=== PATIENT | female | born 1995 | race Caucasian/White ===

== ENCOUNTER 2017-08-04 12:17 | Inpatient (IN) | payer BC, SELFPAY ==
[2017-08-04] VITALS (9 sets, daily range): BP systolic 83–111; BP diastolic 44–68; PULSE 107–147; RESP 16–20; TEMP 36.9–38.9; O2SAT 97–99; BMI 16.2; BMI 16.3; BMI 16.6
--- NOTE | 2017-08-04 13:11 | CT_ITS ---
STUDY: CT ABDOMEN AND PELVIS WITHOUT CONTRAST REASON FOR EXAM: Female, 22 years old. Right lower quadrant and right flank pain RADIATION DOSAGE (If Supplied By Facility): CTDIvol = ( 6.04 ) mGy, DLP = ( 282.37 ) mGycm TECHNIQUE: Transaxial images were obtained from the dome of the diaphragm to the symphysis pubis without oral contrast, and without intravenous contrast. Sagittal and coronal images were reconstructed. Individualized dose optimization techniques were used for this CT. COMPARISON: None. FINDINGS: Lung bases demonstrate no evidence for consolidative process. No pericardial effusion. Liver and spleen are within normal limits. The liver appears enlarged. The adrenal glands and the pancreas are grossly within normal limits. Gallbladder slightly distended. Kidneys demonstrate no evidence for hydronephrosis. The appendix is not development visualized No free air within the peritoneal cavity. No free fluid in the pelvis. Uterus appears slightly prominent in size. Osseous structures demonstrate no acute abnormalities. IMPRESSION: Nonvisualization of the appendix no definite stranding in the right lower quadrant however appendicitis is not entirely excluded on this noncontrast CT. No definite evidence for obstructive uropathy seen Slightly distended gallbladder. There is likely a Kamla's lobe of the liver. Other possibilities include hepatomegaly Electronically Signed: Mihir Arauz, at 14:07 EDT Tel , Service support , CT/Abdomen/Pelvis without Cont
[2017-08-04] MEDS: 0.9% Normal Saline 1,000 ML 1000 ML IV (13:12)
[2017-08-04] MEDS: Ondansetron 4 MG/2 ML Vial IV (13:12)
--- NOTE | 2017-08-04 13:18 | ED.DCSUM_ITS ---
- ER Visit Summary Date of Service: 08/04/17 Chief Complaint: [] RT Sided abdominal pain since morning History of Present Illness: The patient is a 22 F [] patient reports she went to sleep feeling fine Saturday woke was awake and began having a sense of nausea and pain to the right side abdomen the symptoms persisted she came in for evaluation she has had some nausea but no vomiting she able take liquids she has had normal bowel bladder habits she is on a control tablet that caused her to miss periods for 3 months so she does not believe she is she has no history of vaginal bleeding or vaginal discharge and again bowel bladder habits are normal she has been able to eat she has had no fever she has no history of abdominal surgery, no history of kidney stones or ovarian cyst disease or abnormal vaginal bleeding Physical Examination: [] She is in no distress points her right lower abdomen as focus of pain she is a thin person head neck chest unremarkable the lungs are clear the abdomen is soft there is a vague pain to the right lower abdomen she says it radiates to her right back right back was unremarkable the rest of the abdominal exams unremarkable upper lower extremity exams unremarkable neurologically awake alert Pelvic exam done with nurse retail sales merchandiser development shows that there is no vaginal bleeding or discharge no cervical motion tenderness no tenderness to palpation of the adnexa Test Results: [] Emergency Department Course and Treatment: [] She white count returns of 40,[address] is unremarkable we asked to straight catheter but she declined that she provide a urine sample that shows about 25 white cells but also 10 epithelial cells, we start IV antibiotics, we then again asked her if we could straight catheter and she agreed we sent a straight cath urine which showed 0 red 0 whites Is feeling better she has some very mild pain to the right lower abdomen rebound or guarding at this time I spoke with Dr. Zhou seasonal package handler for surgery he will be by to see the patient shortly for further evaluation Treatment Plan: [] Disposition: [] Admit pending surgery evaluation Impression: [] RT Lower quadrant pain with leukocytosis This note was generated with [employer] dictation software. It may contain incorrect words, spelling, and punctuation that were not noted in review of the chart prior to signing ED Disposition - Plan for ED Patient: Chief Complaint: Abd Pain Referrals: Daniel Brink DO [Primary Care Provider] -
[2017-08-04 13:19] LABS: Hematocrit 35.5 % (37-47); Hemoglobin 11.7 g/dl (12.0-15.0); Mean Corpuscular Hgb 29.3 pg (27.0-32.0); Mean Platelet Vol. 9.2 fl (6.2-12.0); Platelet Count 360 K/mm3 (150-450); RBC Distribution Width CV 12.9 % (11.6-14.6); Red Blood Count 3.99 M/mm3 (4.2-5.4)
[2017-08-04] MEDS: Morphine 4 MG/ML Syringe IV (13:20)
[2017-08-04 13:29] LABS: AST(SGOT) 11 U/L (15-37); Alanine Aminotransfer ALT/SGPT 14 U/L (13-56); Albumin, Serum 2.9 g/dL (3.2-5.0); Alkaline Phosphatase 57 U/L (45-117); Anion Gap 11 (5-15); BUN 16 mg/dL (7-18); BUN/Creat Ratio 10.1 RATIO (10-20); Bilirubin, Direct 0.21 mg/dL (0.00-0.30); Calcium,Total 8.6 mg/dL (8.5-10.1); Chloride 99 mmol/L (98-107); Creatinine, Serum 1.58 mg/dL (0.55-1.02); EST Glomerular Filtration Rate 44 mL/min (>60); Est Glom Filt Rate - Afr Amer 53 mL/min (>60); Estimated Creatinine Clearance 37.34 ml/min; Globulin 4.5 g/dL (2.2-4.2); Glucose 141 mg/dL (74-106); Lipase 66 U/L (73-393); Potassium 3.9 mmol/L (3.5-5.1); Protein, Total 7.4 g/dL (6.4-8.2); Sodium Level 133 mmol/L (136-145)
[2017-08-04 13:36] LABS: Pregnancy, Serum, hCG Quali. NEGATIVE Negative (0-9 Nonpreg)
[2017-08-04 13:39] LABS: Differential Indicated MANUAL DIFF; POSITIVE COUNT YES; POSITIVE DIFFERENTIAL YES; POSITIVE MORPHOLOGY YES
[2017-08-04 13:40] LABS: White Blood Count 39.6 K/mm3 (4.4-11.0)
[2017-08-04 13:42] LABS: Lymphocyte 6 % (19-41); Monocyte 3 % (0-10); Neutrophil-Band 17 % (0-5); Neutrophil-Segmented 74 % (47-70); Total Cells Counted 100 (MANUAL DIFF)
[2017-08-04 13:44] LABS: Platelet Estimate ADEQUATE (ADEQ)
[2017-08-04 13:45] LABS: Red Cell Morphology NORM C+C NORMAL (NORM C&C)
--- NOTE | 2017-08-04 14:13 | ED.RN ---
WBC 39.[address] THE LAB DR HARRELL AWARE
[2017-08-04 14:34] LABS: Mucous, Urine 0 SEEN /hpf (<or=2+); Red Blood Cells-Urine 0 SEEN /hpf (0-5)
[2017-08-04 14:37] LABS: Color, Urine Yellow (Yellow); Glucose, Dipstick Normal (Normal); Ketone-Dipstick Negative (Negative); Leukocyte Esterase-Dipstick 500 /ul (Negative); Nitrite-Dipstick Negative (Negative); Occult Blood-Urine 25 /ul (Negative); Protein-Dipstick 100 mg/dl (Negative); Specific Gravity, Urine 1.015 (1.002-1.030); Urine Bilirubin Dipstick Negative (Negative); Urine Clarity Sl. Cloudy (Clear); Urine Urobilinogen Normal (Normal)
[2017-08-04 14:44] LABS: Bacteria 1+ /hpf (None Seen); Squamous Epithelial Cells - UA 5-10 SEEN /hpf (5-10); White Blood Cells 25-50 SEEN /hpf (0-5)
[2017-08-04] MEDS: 0.9% Normal Saline 1,000 ML 999 ML IV (14:45)
[2017-08-04 15:20] LABS: Lactic Acid 1.6 mmol/L (0.4-2.0)
[2017-08-04 15:54] LABS: Bacteria 0 SEEN /hpf (None Seen); Mucous, Urine 0 SEEN /hpf (<or=2+); Red Blood Cells-Urine 0 SEEN /hpf (0-5)
[2017-08-04 15:57] LABS: Color, Urine Yellow (Yellow); Glucose, Dipstick Normal (Normal); Ketone-Dipstick Negative (Negative); Leukocyte Esterase-Dipstick 25 /ul (Negative); Nitrite-Dipstick Negative (Negative); Occult Blood-Urine 10 /ul (Negative); Protein-Dipstick Negative (Negative); Urine Bilirubin Dipstick Negative (Negative); Urine Clarity Clear (Clear); Urine Urobilinogen Normal (Normal)
[2017-08-04 16:06] LABS: Squamous Epithelial Cells - UA 0-5 SEEN /hpf (5-10); White Blood Cells 0-5 SEEN /hpf (0-5)
--- NOTE | 2017-08-04 16:43 | CON.PCM_ITS ---
Problem List (1) Abdominal discomfort in right flank Status: Acute Reason for Consult Date of Consultation: 08/04/17 History of Present Illness: The patient is a 22 F patient reports she went to sleep feeling fine Saturday woke was awake and began having a sense of nausea and pain to the right side abdomen as well as right lower back pain. Initially she was having difficulty with urination and some burning she was treating herself with cranberry juice and some leftover medication to help with the burning. The symptoms persisted and she developed a fever of 102 at home, she came in for evaluation she has had some nausea but no vomiting she able take liquids she has had normal bowel bladder habits she is on a control tablet that caused her to miss periods for 3 months so she does not believe she is she has no history of vaginal bleeding or vaginal discharge and again bowel bladder habits are normal she has been able to eat she has had no fever she has no history of abdominal surgery, no history of kidney stones or ovarian cyst disease or abnormal vaginal bleeding In the emergency department her initial urinalysis was quite suspicious for a UTI a straight cath was less suspicious. She got a dose of antibiotics as well as a small amount of morphine and she states that she feels significantly better. She is not complaining of any right lower quadrant abdominal pain and yet still has some of that back pain. In addition she is chilling. Past Medical History Allergies No Known Allergies Allergy (Verified 08/04/17 12:19) Home Medications: Ambulatory Orders Medication Instructions Recorded l-Norgest/E.estradiol-E.estrad 1 tab PO DAILY 08/04/17 [Levono-E Estrad 0.15-0.03-0.01] Surgical History: no surgical history Smoking Status: Never smoker - *Family History Maternal History Items: No pertinent history Review of Systems Constitutional: Reports: Chills, Fever, Malaise Eyes: Denies: Blurred vision, Pain, Redness, Vision Change HEENT: Denies: Dysphasia, Ear Pain, Eye Pain, Head Aches, Hearing Changes, Sore Throat Cardiovascular: Denies: Chest Pain, Chest Pressure, Chest Tightness, Palpitations Respiratory: Denies: Cough, Hemoptysis, Shortness of breath at rest, Shortness of breath upon exertion, Wheezing Gastrointestinal: Reports: Abdominal Pain Genitourinary: Reports: Dysuria Musculoskeletal: Reports: Muscle pain Patient Problems: Active and Suspected Problems Abdominal cramping in right flank (Acute) Abdominal discomfort in right flank (Acute) - Physical Exam General: Alert, Oriented x3 HEENT: Atraumatic, PERRLA, EOMI, Normocephalic Oral: Moist Mucosa Lungs: Clear to auscultation Cardiovascular: Regular rate, Regular Rhythm, No murmurs Abdomen: Bowel Sounds Present, Soft, Non Tender, Non-Distended, - - Patient has a negative heel tap. She is able to get in and out of the bed without difficulty. Extremities: No clubbing, No cyanosis, No edema Skin: No rashes, No breakdown, - - She has no rashes in her back. She has icy hot patches on her back and on her right lower quadrant of her abdomen. Vital Signs Temp Pulse Resp BP Pulse Ox 98.7 F 107 H 16 97/57 L 97 08/04/17 14:59 08/04/17 14:59 08/04/17 14:59 08/04/17 14:59 08/04/17 14:59 Oxygen Delivery Method Room Air Weight: 91 lb 12.8 oz Body Mass Index (BMI) 16.2 Laboratory Tests Past 24 Hrs 08/04/17 08/04/17 08/04/17 13:02 13:02 13:02 WBC 39.6 H* RBC 3.99 L Hgb 11.7 L Hct 35.5 L MCV 89.0 MCH 29.3 MCHC 33.0 RDW 12.9 RDW Differential 42.0 Plt Count 360 MPV 9.2 Neut % (Auto) Not Reportable Absolute Neuts (auto) 36.0 H Absolute Lymphs (auto) 2.40 Total Counted 100 Neutrophils % (Manual) 74 H Band Neutrophils % 17 H Lymphocytes % (Manual) 6 L Monocytes % (Manual) 3 Diff Path Review May foll Platelet Estimate ADEQUATE RBC Morphology NORM C+C Sodium 133 L Potassium 3.9 Chloride 99 Carbon Dioxide 23.0 Anion Gap 11 BUN 16 Creatinine 1.58 H Estim Creat Clear Calc 37.34 Est GFR (MDRD) Af Amer 53 L Est GFR (MDRD) Non-Af 44 L BUN/Creatinine Ratio 10.1 Glucose 141 H Lactic Acid Calcium 8.6 Total Bilirubin 1.00 Direct Bilirubin 0.21 AST 11 L ALT 14 Alkaline Phosphatase 57 Total Protein 7.4 Albumin 2.9 L Globulin 4.5 H Lipase 66 L Serum , Qual NEGATIVE Urine Color Urine Clarity Urine pH Ur Specific [place] Urine Protein Urine Glucose (UA) Urine Ketones Urine Occult Blood Urine Nitrite Urine Bilirubin Urine Urobilinogen Ur Leukocyte Esterase Urine RBC Urine WBC Ur Squamous Epith Cells Urine Bacteria Urine Mucus 08/04/17 08/04/17 08/04/17 14:25 14:45 15:15 WBC RBC Hgb Hct MCV MCH MCHC RDW RDW Differential Plt Count MPV Neut % (Auto) Absolute Neuts (auto) Absolute Lymphs (auto) Total Counted Neutrophils % (Manual) Band Neutrophils % Lymphocytes % (Manual) Monocytes % (Manual) Diff Path Review Platelet Estimate RBC Morphology Sodium Potassium Chloride Carbon Dioxide Anion Gap BUN Creatinine Estim Creat Clear Calc Est GFR (MDRD) Af Amer Est GFR (MDRD) Non-Af BUN/Creatinine Ratio Glucose Lactic Acid 1.6 Calcium Total Bilirubin Direct Bilirubin AST ALT Alkaline Phosphatase Total Protein Albumin Globulin Lipase Serum , Qual Urine Color Yellow Yellow Urine Clarity Sl. Cloudy Clear Urine pH 6.0 6.0 Ur Specific [place] 1.015 1.010 Urine Protein 100 H Negative Urine Glucose (UA) Normal Normal Urine Ketones Negative Negative Urine Occult Blood 25 H 10 H Urine Nitrite Negative Negative Urine Bilirubin Negative Negative Urine Urobilinogen Normal Normal Ur Leukocyte Esterase 500 H 25 H Urine RBC 0 SEEN 0 SEEN Urine WBC 25-50 SEEN 0-5 SEEN Ur Squamous Epith Cells 5-10 SEEN 0-5 SEEN Urine Bacteria 1+ 0 SEEN Urine Mucus 0 SEEN 0 SEEN Assessment/Plan Active and Suspected Problems Abdominal cramping in right flank (Acute) Abdominal discomfort in right flank (Acute) At this point I do not think that this patient has acute appendicitis or appendiceal abscess or phlegmon. The CAT scan really is a difficult test particularly with her being so skinny at 91 pounds there are no real fat planes to help with this but her physical exam is not consistent with appendicitis and is quite a bit more consistent with pyelonephritis. I believe it is appropriate for her to come into the hospital tonight received several more doses of IV antibiotics. As well as wait for the urine culture and blood cultures to come back. I will follow along with you.
--- NOTE | 2017-08-04 16:55 | PCM.HP.STD ---
Problem List (1) Acute kidney injury Status: Acute (2) Acute pyelonephritis Status: Chronic (3) Sepsis Status: Acute History of Present Illness Date of Admission: 08/04/17 Chief Complaint: Abdominal pain. The patient is a 22 year old F with no significant past medical history presented to the emergency room because of abdominal pain. Her illness started 4 days ago with abdominal pain, right flank/right lumbar region pain, intermittent pain, sharp pain, 7 out of 10 in severity, not radiating, associated with nausea, vomiting and fever, relieved by Motrin and ice packs and without aggravating factors. She had a temperature of 102 Fahrenheit at home. On the first day of her symptoms, she started having dysuria for which she took cranberry juice and it did improve. She denied constipation or diarrhea. She reported dysuria but no hematuria or foul-smelling urine. In the emergency department, she was afebrile, tachycardic, blood pressure was stable and pulse ox maintained on room air. Her routine blood work is remarkable for significant leukocytosis, sodium of 133 and creatinine 1.58. LFT and lipase were normal. Lactic acid was normal. Serum test was negative. Urinalysis revealed clear urine, negative for nitrite, there was only 25 leukocyte esterase, 0-5 WBCs and no bacteria seen. CT scan abdomen and pelvis without contrast revealed nonvisualization of the appendix without definite stranding in the right lower quadrant, normal kidneys without evidence of kidney stones or hydronephrosis. She is being admitted for abdominal pain with sepsis with probable diagnosis of acute pyonephritis as well as acute kidney injury. Past Medical History Past Medical History (Chronic Problems): Chronic Problems Acute pyelonephritis (Chronic) Allergies No Known Allergies Allergy (Verified 08/04/17 12:19) Home Medications: Ambulatory Orders Medication Instructions Recorded l-Norgest/E.estradiol-E.estrad 1 tab PO DAILY 08/04/17 [Levono-E Estrad 0.15-0.03-0.01] Surgical History: no surgical history Psychiatric History: No pertinent psych hx GEOPHYSICAL PROSPECTING PERMIT AGENT History: No pertinent GEOPHYSICAL PROSPECTING PERMIT AGENT history Lives: With Family Smoking Status: Never smoker Alcohol: None Drugs: None - *Family History Maternal History Items: No pertinent history Review of Systems Constitutional: Reports: Anorexia, Chills, Fever. Denies: Weakness Eyes: Denies: Blurred vision, Double vision, Drainage, Redness HEENT: Denies: Difficulty Hearing, Ear Pain, Eye Pain, Nasal Congestion, Sore Throat Cardiovascular: Denies: Chest Pain, Chest Pressure, Chest Tightness, Edema, Palpitations, Syncope Respiratory: Denies: Cough, Pleuritic Pain, Shortness of Breath, Sputum production Gastrointestinal: Reports: Abdominal Pain, Nausea, Vomiting. Denies: Constipation, Diarrhea, Hematochezia Genitourinary: Denies: Frequency, Hematuria Musculoskeletal: Denies: Arm Pain, Back Pain, Foot Pain Skin: Denies: Dryness, Rash Neurological: Denies: Balance problems, Double vision, Change in Speech, Slurred speech, Headaches, Incoordination, Numbness Psychiatric: Denies: Anxiety, Depression Endocrine: Denies: Change in Body Habitus, Polydipsia VTE Information - Inpt Only VTE Present on Admission: No VTE Mechan Device Prophylaxis: None VTE Pharm Prophylaxis ordered?: No Patient Problems: Active and Suspected Problems Acute kidney injury (Acute) Sepsis (Acute) Abdominal discomfort in right flank (Acute) - Physical Exam General: Alert, Oriented x3, Cooperative, No apparent distress HEENT: Atraumatic, PERRLA, EOMI Oral: Moist Mucosa, No Gingival or Mucosal Lesions/ Ulcerations Neck: Supple, No JVD, Negative Carotid Bruits, Trachea Midline, Thyroid Normal Size and Texture Lungs: Clear to auscultation, No rhonchi, No wheeze, No rales, Diminished Cardiovascular: Regular rate, Regular Rhythm, Normal S1, Normal S2, No murmurs, PMI Normal, Tachycardic Abdomen: Bowel Sounds Present, Soft, Non Tender, Non-Distended, No Hepato-splenomegaly Extremities: No clubbing, No cyanosis, No edema Skin: No rashes, No breakdown Lymphatic: No Cervical, Supraclavicular, or Inguinal Adenopathy Neurological: Cranial nerves II-XII grossly intact, Motor Exam 5/5 strength throughout Psych/Mental Status: Normal Affect, Appropriate, Alert and oriented to time, place, person, mood and affect Vital Signs Temp Pulse Resp BP Pulse Ox 98.7 F 126 H 20 H 111/68 97 08/04/17 14:59 08/04/17 16:38 08/04/17 16:38 08/04/17 16:38 08/04/17 14:59 Oxygen Delivery Method Room Air Weight: 91 lb 12.8 oz Body Mass Index (BMI) 16.2 Laboratory Tests Past 24 Hrs 08/04/17 08/04/17 08/04/17 13:02 13:02 13:02 WBC 39.6 H* RBC 3.99 L Hgb 11.7 L Hct 35.5 L MCV 89.0 MCH 29.3 MCHC 33.0 RDW 12.9 RDW Differential 42.0 Plt Count 360 MPV 9.2 Neut % (Auto) Not Reportable Absolute Neuts (auto) 36.0 H Absolute Lymphs (auto) 2.40 Total Counted 100 Neutrophils % (Manual) 74 H Band Neutrophils % 17 H Lymphocytes % (Manual) 6 L Monocytes % (Manual) 3 Diff Path Review May foll Platelet Estimate ADEQUATE RBC Morphology NORM C+C Sodium 133 L Potassium 3.9 Chloride 99 Carbon Dioxide 23.0 Anion Gap 11 BUN 16 Creatinine 1.58 H Estim Creat Clear Calc 37.34 Est GFR (MDRD) Af Amer 53 L Est GFR (MDRD) Non-Af 44 L BUN/Creatinine Ratio 10.1 Glucose 141 H Lactic Acid Calcium 8.6 Total Bilirubin 1.00 Direct Bilirubin 0.21 AST 11 L ALT 14 Alkaline Phosphatase 57 Total Protein 7.4 Albumin 2.9 L Globulin 4.5 H Lipase 66 L Serum , Qual NEGATIVE Urine Color Urine Clarity Urine pH Ur Specific [place] Urine Protein Urine Glucose (UA) Urine Ketones Urine Occult Blood Urine Nitrite Urine Bilirubin Urine Urobilinogen Ur Leukocyte Esterase Urine RBC Urine WBC Ur Squamous Epith Cells Urine Bacteria Urine Mucus 08/04/17 08/04/17 08/04/17 14:25 14:45 15:15 WBC RBC Hgb Hct MCV MCH MCHC RDW RDW Differential Plt Count MPV Neut % (Auto) Absolute Neuts (auto) Absolute Lymphs (auto) Total Counted Neutrophils % (Manual) Band Neutrophils % Lymphocytes % (Manual) Monocytes % (Manual) Diff Path Review Platelet Estimate RBC Morphology Sodium Potassium Chloride Carbon Dioxide Anion Gap BUN Creatinine Estim Creat Clear Calc Est GFR (MDRD) Af Amer Est GFR (MDRD) Non-Af BUN/Creatinine Ratio Glucose Lactic Acid 1.6 Calcium Total Bilirubin Direct Bilirubin AST ALT Alkaline Phosphatase Total Protein Albumin Globulin Lipase Serum , Qual Urine Color Yellow Yellow Urine Clarity Sl. Cloudy Clear Urine pH 6.0 6.0 Ur Specific [place] 1.015 1.010 Urine Protein 100 H Negative Urine Glucose (UA) Normal Normal Urine Ketones Negative Negative Urine Occult Blood 25 H 10 H Urine Nitrite Negative Negative Urine Bilirubin Negative Negative Urine Urobilinogen Normal Normal Ur Leukocyte Esterase 500 H 25 H Urine RBC 0 SEEN 0 SEEN Urine WBC 25-50 SEEN 0-5 SEEN Ur Squamous Epith Cells 5-10 SEEN 0-5 SEEN Urine Bacteria 1+ 0 SEEN Urine Mucus 0 SEEN 0 SEEN Clinical Impression(s) from Imaging Studies Abdomen/Pelvis CT 08/04/17 13:11 IMPRESSION: Nonvisualization of the appendix no definite stranding in the right lower quadrant however appendicitis is not entirely excluded on this noncontrast CT. No definite evidence for obstructive uropathy seen Slightly distended gallbladder. There is likely a Kamla's lobe of the liver. Other possibilities include hepatomegaly Electronically Signed: Mihir Arauz, at 14:07 EDT Tel , Service support , Assessment/Plan Active and Suspected Problems Acute kidney injury (Acute) Sepsis (Acute) Abdominal discomfort in right flank (Acute) This is a 22 years old female patient presented to the emergency room because of right flank pain/right lumbar region pain, nausea, vomiting and fever and she was found to have highly elevated white blood cell count of more than 39,000, diagnosed with sepsis of unclear etiology with probable diagnosis of acute pyonephritis and also found to have acute kidney injury. #1 abdominal pain/sepsis/probable acute pyonephritis: CT scan abdomen and pelvis reviewed as above. No definite diagnosis of acute appendicitis but cannot be excluded. General surgery evaluated the patient and stated no evidence of acute appendicitis. She is afebrile, tachycardic, blood pressure stable and lactic acid was normal. Blood and urine culture sent. Serum test was negative. Plan: Admit to MedSurg floor, cardiac monitoring, IV fluids, follow blood and urine cultures, repeat CBC and CMP tomorrow morning, start IV Zosyn, ultrasound abdomen complete, repeat serum test tomorrow morning, general surgery consult #2 acute kidney injury/mild hyponatremia: Probably prerenal secondary to infection and sepsis. Patient denies any history of kidney disease. Admission creatinine is 1.58. Plan: IV fluids, input output chart, repeat BMP tomorrow morning. #3 DVT prophylaxis: Low risk patient, no prophylaxis indicated. This note was generated with [employer] dictation software. It may contain incorrect words, spelling, and punctuation that were not noted in checking the note before signing. Code Visit Inpatient E&M: 86184 Init Hosp L3
--- NOTE | 2017-08-04 17:06 | HP.PCM_ITS ---
Problem List (1) Acute kidney injury Status: Acute (2) Acute pyelonephritis Status: Chronic (3) Sepsis Status: Acute History of Present Illness Date of Admission: 08/04/17 Chief Complaint: Abdominal pain. The patient is a 22 year old F with no significant past medical history presented to the emergency room because of abdominal pain. Her illness started 4 days ago with abdominal pain, right flank/right lumbar region pain, intermittent pain, sharp pain, 7 out of 10 in severity, not radiating, associated with nausea, vomiting and fever, relieved by Motrin and ice packs and without aggravating factors. She had a temperature of 102 Fahrenheit at home. On the first day of her symptoms, she started having dysuria for which she took cranberry juice and it did improve. She denied constipation or diarrhea. She reported dysuria but no hematuria or foul-smelling urine. In the emergency department, she was afebrile, tachycardic, blood pressure was stable and pulse ox maintained on room air. Her routine blood work is remarkable for significant leukocytosis, sodium of 133 and creatinine 1.58. LFT and lipase were normal. Lactic acid was normal. Serum test was negative. Urinalysis revealed clear urine, negative for nitrite, there was only 25 leukocyte esterase, 0-5 WBCs and no bacteria seen. CT scan abdomen and pelvis without contrast revealed nonvisualization of the appendix without definite stranding in the right lower quadrant, normal kidneys without evidence of kidney stones or hydronephrosis. She is being admitted for abdominal pain with sepsis with probable diagnosis of acute pyonephritis as well as acute kidney injury. 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 Denies: Weakness Eyes: Denies: Blurred vision, Double vision, Drainage, Redness HEENT: Denies: Difficulty Hearing, Ear Pain, Eye Pain, Nasal Congestion, Sore Throat Cardiovascular: Denies: Chest Pain, Chest Pressure, Chest Tightness, Edema, Palpitations, Syncope Respiratory: Denies: Cough, Pleuritic Pain, Shortness of Breath, Sputum production Gastrointestinal: Reports: Abdominal Pain, Nausea, Vomiting. Denies: Constipation, Diarrhea, Hematochezia Genitourinary: Denies: Frequency, Hematuria Musculoskeletal: Denies: Arm Pain, Back Pain, Foot Pain Skin: Denies: Dryness, Rash Neurological: Denies: Balance problems, Double vision, Change in Speech, Slurred speech, Headaches, Incoordination, Numbness Psychiatric: Denies: Anxiety, Depression Endocrine: Denies: Change in Body Habitus, Polydipsia VTE Information - Inpt Only VTE Present on Admission: No VTE Mechan Device Prophylaxis: None VTE Pharm Prophylaxis ordered?: No Patient Problems: Active and Suspected Problems Acute kidney injury (Acute) Sepsis (Acute) Abdominal discomfort in right flank (Acute) - Physical Exam General: Alert, Oriented x3, Cooperative, No apparent distress HEENT: Atraumatic, PERRLA, EOMI Oral: Moist Mucosa, No Gingival or Mucosal Lesions/ Ulcerations Neck: Supple, No JVD, Negative Carotid Bruits, Trachea Midline, Thyroid Normal Size and Texture Lungs: Clear to auscultation, No rhonchi, No wheeze, No rales, Diminished Cardiovascular: Regular rate, Regular Rhythm, Normal S1, Normal S2, No murmurs, PMI Normal, Tachycardic Abdomen: Bowel Sounds Present, Soft, Non Tender, Non-Distended, No Hepato- splenomegaly Extremities: No clubbing, No cyanosis, No edema Skin: No rashes, No breakdown Lymphatic: No Cervical, Supraclavicular, or Inguinal Adenopathy Neurological: Cranial nerves II-XII grossly intact, Motor Exam 5/5 strength throughout Psych/Mental Status: Normal Affect, Appropriate, Alert and oriented to time, place, person, mood and affect Vital Signs Temp Pulse Resp BP Pulse Ox 98.7 F 126 H 20 H 111/68 97 08/04/17 14:59 08/04/17 16:38 08/04/17 16:38 08/04/17 16:38 08/04/17 14:59 Oxygen Delivery Method Room Air Weight: 91 lb 12.8 oz Body Mass Index (BMI) 16.2 Laboratory Tests Past 24 Hrs 08/04/17 08/04/17 08/04/17 13:02 13:02 13:02 WBC 39.6 H* RBC 3.99 L Hgb 11.7 L Hct 35.5 L MCV 89.0 MCH 29.3 MCHC 33.0 RDW 12.9 RDW Differential 42.0 Plt Count 360 MPV 9.2 Neut % (Auto) Not Reportable Absolute Neuts (auto) 36.0 H Absolute Lymphs (auto) 2.40 Total Counted 100 Neutrophils % (Manual) 74 H Band Neutrophils % 17 H Lymphocytes % (Manual) 6 L Monocytes % (Manual) 3 Diff Path Review May foll Platelet Estimate ADEQUATE RBC Morphology NORM C+C Sodium 133 L Potassium 3.9 Chloride 99 Carbon Dioxide 23.0 Anion Gap 11 BUN 16 Creatinine 1.58 H Estim Creat Clear Calc 37.34 Est GFR (MDRD) Af Amer 53 L Est GFR (MDRD) Non-Af 44 L BUN/Creatinine Ratio 10.1 Glucose 141 H Lactic Acid Calcium 8.6 Total Bilirubin 1.00 Direct Bilirubin 0.21 AST 11 L ALT 14 Alkaline Phosphatase 57 Total Protein 7.4 Albumin 2.9 L Globulin 4.5 H Lipase 66 L Serum , Qual NEGATIVE Urine Color Urine Clarity Urine pH Ur Specific [place] Urine Protein Urine Glucose (UA) Urine Ketones Urine Occult Blood Urine Nitrite Urine Bilirubin Urine Urobilinogen Ur Leukocyte Esterase Urine RBC Urine WBC Ur Squamous Epith Cells Urine Bacteria Urine Mucus 08/04/17 08/04/17 08/04/17 14:25 14:45 15:15 WBC RBC Hgb Hct MCV MCH MCHC RDW RDW Differential Plt Count MPV Neut % (Auto) Absolute Neuts (auto) Absolute Lymphs (auto) Total Counted Neutrophils % (Manual) Band Neutrophils % Lymphocytes % (Manual) Monocytes % (Manual) Diff Path Review Platelet Estimate RBC Morphology Sodium Potassium Chloride Carbon Dioxide Anion Gap BUN Creatinine Estim Creat Clear Calc Est GFR (MDRD) Af Amer Est GFR (MDRD) Non-Af BUN/Creatinine Ratio Glucose Lactic Acid 1.6 Calcium Total Bilirubin Direct Bilirubin AST ALT Alkaline Phosphatase Total Protein Albumin Globulin Lipase Serum , Qual Urine Color Yellow Yellow Urine Clarity Sl. Cloudy Clear Urine pH 6.0 6.0 Ur Specific [place] 1.015 1.010 Urine Protein 100 H Negative Urine Glucose (UA) Normal Normal Urine Ketones Negative Negative Urine Occult Blood 25 H 10 H Urine Nitrite Negative Negative Urine Bilirubin Negative Negative Urine Urobilinogen Normal Normal Ur Leukocyte Esterase 500 H 25 H Urine RBC 0 SEEN 0 SEEN Urine WBC 25-50 SEEN 0-5 SEEN Ur Squamous Epith Cells 5-10 SEEN 0-5 SEEN Urine Bacteria 1+ 0 SEEN Urine Mucus 0 SEEN 0 SEEN Clinical Impression(s) from Imaging Studies Abdomen/Pelvis CT 08/04/17 13:11 IMPRESSION: Nonvisualization of the appendix no definite stranding in the right lower quadrant however appendicitis is not entirely excluded on this noncontrast CT. No definite evidence for obstructive uropathy seen Slightly distended gallbladder. There is likely a Kamla's lobe of the liver. Other possibilities include hepatomegaly Electronically Signed: Mihir Arauz, at 14:07 EDT Tel , Service support , Assessment/Plan Active and Suspected Problems Acute kidney injury (Acute) Sepsis (Acute) Abdominal discomfort in right flank (Acute) This is a 22 years old female patient presented to the emergency room because of right flank pain/right lumbar region pain, nausea, vomiting and fever and she was found to have highly elevated white blood cell count of more than 39,000 , diagnosed with sepsis of unclear etiology with probable diagnosis of acute pyonephritis and also found to have acute kidney injury. #1 abdominal pain/sepsis/probable acute pyonephritis: CT scan abdomen and pelvis reviewed as above. No definite diagnosis of acute appendicitis but cannot be excluded. General surgery evaluated the patient and stated no evidence of acute appendicitis. She is afebrile, tachycardic, blood pressure stable and lactic acid was normal. Blood and urine culture sent. Serum test was negative. Plan: Admit to MedSurg floor, cardiac monitoring, IV fluids, follow blood and urine cultures, repeat CBC and CMP tomorrow morning , start IV Zosyn, ultrasound abdomen complete, repeat serum test tomorrow morning, general surgery consult #2 acute kidney injury/mild hyponatremia: Probably prerenal secondary to infection and sepsis. Patient denies any history of kidney disease. Admission creatinine is 1.58. Plan: IV fluids, input output chart, repeat BMP tomorrow morning. #3 DVT prophylaxis: Low risk patient, no prophylaxis indicated. This note was generated with [employer] dictation software. It may contain incorrect words, spelling, and punctuation that were not noted in checking the note before signing. Code Visit Inpatient E&M: 17116 Init Hosp L3
[2017-08-04] MEDS: 0.9% Normal Saline 1,000 ML 150 ML IV (18:34)
[2017-08-04] MEDS: Piperacil/Tazobactam 3.375 GM/50 ML ML IV (21:30)
[2017-08-05] VITALS (15 sets, daily range): BP systolic 83–110; BP diastolic 46–64; PULSE 90–137; RESP 14–18; TEMP 36.6–39.4; O2SAT 95–100
[2017-08-05] MEDS: 0.9% Normal Saline 1,000 ML 999 ML IV (00:03)
[2017-08-05] MEDS: 0.9% Normal Saline 1,000 ML 150 ML IV ×3 (00:04→21:46)
--- NOTE | 2017-08-05 04:51 | NURSING ---
Pt reports that she had a smear of stool when she went to the bathroom and was requiring a new gown and lift pad. Both of these items were provided to the pt along with a pack of bath wipes. No further needs voiced.
[2017-08-05] MEDS: Piperacil/Tazobactam 3.375 GM/50 ML ML IV ×3 (05:00→21:45)
[2017-08-05] MEDS: Acetaminophen 325 MG Tablet 650 MG PO ×3 (05:05→16:12)
--- NOTE | 2017-08-05 05:55 | US_ITS ---
STUDY: ABDOMINAL ULTRASOUND REASON FOR EXAM: Female, 22 years old. Pain. TECHNIQUE: Transabdominal ultrasound was performed with real-time and static carr scale imaging. TECHNICAL QUALITY: Adequate. COMPARISON: CT scan 08/04/2017. FINDINGS: Liver: The liver measures at least 21 cm. There is normal echogenicity of the liver. The bile ducts are within normal limits. There is hepatic color flow. The direction of portal flow is hepatopetal. There is no demonstrated mass lesion. Portal vein measurement: Gallbladder: Normal distended gallbladder. The gallbladder wall measures 2.7 mm. There is a negative sonographic Nelson's sign. There is no pericholecystic fluid. There is biliary sludge dependent within the gallbladder. No definite gallstones. Common Bile Duct (C.B.D.): The common bile duct measures 2.0 mm. Pancreas: There is poor visualization of the pancreas. Spleen: Normal size of the spleen. The spleen measures 9.7 cm. Right Kidney: Normal size of the right kidney. The right kidney measures 12.8 cm. Normal renal cortex. The right cortex measures 1.3 cm. There is no demonstrated renal mass or cyst. There is no right hydronephrosis. Left Kidney: Normal size of the left kidney. The left kidney measures 10.0 cm. Normal renal cortex. The left cortex measures 2.2 cm. There is no demonstrated renal mass or cyst. There is no left hydronephrosis. Aorta: 1.4 cm I.V.C.: The IVC is patent. There is no ascites. US/Abdomen Complete IMPRESSION: Hepatomegaly. Sludge in the gallbladder. Electronically Signed: Gómez Garcia MD at 16:21 EDT , Service support ,
[2017-08-05 06:13] LABS: Absolute Lymphocyte Count 1.53 X10^3/ul (0.83-4.51); Basophil# 0.02 X10^3/uL; Basophil% 0.1 % (0-1); Eosinophil# 0.01 X10^3/uL; Hematocrit 28.6 % (37-47); Hemoglobin 9.3 g/dl (12.0-15.0); Lymphocyte # 1.53 X10^3/ul (4.0); Mean Corp Hgb Conc 32.5 g/gl (32-36); Mean Corpuscular Hgb 29.2 pg (27.0-32.0); Mean Corpuscular Volume 89.9 fL (81-99); Mean Platelet Vol. 9.9 fl (6.2-12.0); Monocyte# 1.75 X10^3/uL; Monocyte% 6.9 % (0-10); Neutrophil # 21.96 X10^3/uL (2.7-7.7); Neutrophil % 86.1 % (47-70); Platelet Count 291 K/mm3 (150-450); RBC Distribution Width CV 13.1 % (11.6-14.6); Red Blood Count 3.18 M/mm3 (4.2-5.4); White Blood Count 25.5 K/mm3 (4.4-11.0)
[2017-08-05 06:14] LABS: Differential Indicated SCAN CRITERIA MET; POSITIVE COUNT NO; POSITIVE DIFFERENTIAL YES; POSITIVE MORPHOLOGY NO
[2017-08-05 06:32] LABS: Pregnancy, Serum, hCG Quali. NEGATIVE Negative (0-9 Nonpreg)
[2017-08-05 06:36] LABS: Differential Comment SCANNED
[2017-08-05 06:50] LABS: ALB/GLOB Ratio 0.8 RATIO (0.9-2.4); AST(SGOT) 17 U/L (15-37); Alanine Aminotransfer ALT/SGPT 12 U/L (13-56); Albumin, Serum 2.1 g/dL (3.2-5.0); Alkaline Phosphatase 41 U/L (45-117); Anion Gap 10 (5-15); BUN 11 mg/dL (7-18); BUN/Creat Ratio 13.5 RATIO (10-20); Calcium,Total 7.1 mg/dL (8.5-10.1); Chloride 112 mmol/L (98-107); Creatinine, Serum 0.81 mg/dL (0.55-1.02); EST Glomerular Filtration Rate 95 mL/min (>60); Est Glom Filt Rate - Afr Amer 115 mL/min (>60); Estimated Creatinine Clearance 74.51 ml/min; Globulin 2.8 g/dL (2.2-4.2); Glucose 96 mg/dL (74-106); Protein, Total 4.9 g/dL (6.4-8.2); Sodium Level 141 mmol/L (136-145)
--- NOTE | 2017-08-05 09:04 | PCM.PROGNOTE ---
Patient Problems: Active and Suspected Problems Acute kidney injury (Acute) Sepsis (Acute) Abdominal discomfort in right flank (Acute) Subjective: Follow-up after admission for probable acute pyelonephritis with sepsis. Patient seen and examined. No acute events overnight. Her right flank pain is getting much better. She denies any more nausea vomiting. She has been afebrile overnight, heart rate is down to 100s, blood pressure stable. All over, she is feeling better. - Physical Exam General: Alert, Oriented x3, Cooperative, No apparent distress HEENT: Atraumatic, PERRLA, EOMI Oral: Moist Mucosa, No Gingival or Mucosal Lesions/ Ulcerations Neck: Supple, No JVD, Negative Carotid Bruits, Trachea Midline, Thyroid Normal Size and Texture Lungs: Clear to auscultation, Normal air movement, No rhonchi, No wheeze, No rales Cardiovascular: Regular rate, Regular Rhythm, Normal S1, Normal S2, No murmurs, PMI Normal, Tachycardic Abdomen: Bowel Sounds Present, Soft, Non Tender, Non-Distended, No Hepato-splenomegaly Extremities: No clubbing, No cyanosis, No edema Skin: No rashes, No breakdown Lymphatic: No Cervical, Supraclavicular, or Inguinal Adenopathy Neurological: Cranial nerves II-XII grossly intact, Neuro grossly intact Psych/Mental Status: Normal Affect, Appropriate, Alert and oriented to time, place, person, mood and affect Vital Signs Temp Pulse Resp BP Pulse Ox 97.8 F 117 H 18 95/54 L 99 08/05/17 05:02 08/05/17 05:30 08/05/17 05:02 08/05/17 05:02 08/05/17 07:20 Oxygen Delivery Method Room Air Weight: 93 lb 14.671 oz Body Mass Index (BMI) 16.6 Intake and Output for Last 24 Hours 08/03/17 08/04/17 08/05/17 23:59 23:59 23:59 Intake Total 3136 / 3136 Output Total 1000 / 1000 Balance 2136 / 2136 Laboratory Tests Past 24 Hrs 08/05/17 08/05/17 08/05/17 05:40 05:40 05:40 WBC 25.5 H RBC 3.18 L Hgb 9.3 L Hct 28.6 L MCV 89.9 MCH 29.2 MCHC 32.5 RDW 13.1 RDW Differential 43.0 Plt Count 291 MPV 9.9 Immature Gran % (Auto) 0.900 Neut % (Auto) 86.1 H Lymph % (Auto) 6.0 L [place] % (Auto) 6.9 Eos % (Auto) 0.0 Baso % (Auto) 0.1 Absolute Neuts (auto) 22.0 H Absolute Lymphs (auto) 1.53 Total Counted Not Reportable Differential Comment SCANNED Diff Path Review July Sodium 141 Potassium 4.0 Chloride 112 H Carbon Dioxide 19.0 L Anion Gap 10 BUN 11 Creatinine 0.81 Estim Creat Clear Calc 74.51 Est GFR (MDRD) Af Amer 115 Est GFR (MDRD) Non-Af 95 BUN/Creatinine Ratio 13.5 Glucose 96 Calcium 7.1 L Total Bilirubin 0.70 AST 17 ALT 12 L Alkaline Phosphatase 41 L Total Protein 4.9 L Albumin 2.1 L Globulin 2.8 Albumin/Globulin Ratio 0.8 L Serum , Qual NEGATIVE Medical Necessity - Tobacco Use Smoking Status: Never smoker Assessment/Plan Active and Suspected Problems Acute kidney injury (Acute) Sepsis (Acute) Abdominal discomfort in right flank (Acute) This is a 22 years old female patient presented to the emergency room because of right flank pain/right lumbar region pain, nausea, vomiting and fever and she was found to have highly elevated white blood cell count of more than 39,000, diagnosed with sepsis of unclear etiology with probable diagnosis of acute pyonephritis and also found to have acute kidney injury. #1 probable acute pyonephritis/sepsis: She is on IV Zosyn. Her white blood cell count is trending down. She has been afebrile overnight, last fever was yesterday around 7 PM. Heart rate is down to 100s, blood pressure stable. Symptoms improved, having less right flank pain and no more nausea vomiting. CT scan abdomen and pelvis revealed no evidence of acute abdominal pathology. Blood and urine cultures are pending. Lactic acid was normal. Plan: Continue same treatment, repeat CBC tomorrow morning. #2 acute kidney injury/mild hyponatremia: Probably prerenal secondary to infection and sepsis. She has been on IV fluids, kidney function is back to normal, sodium normalized. #3 anemia: Admission hemoglobin was 11.7 g/dL, today's improvement is 9.3 g/dL this is likely because of hemodilution. No active bleeding. No indication for transfusion. #4 DVT prophylaxis: Low risk patient, no prophylaxis indicated. This note was generated with [employer] dictation software. It may contain incorrect words, spelling, and punctuation that were not noted in checking the note before signing. Code Visit Inpatient E&M: 06829 Subs Hosp L2
--- NOTE | 2017-08-05 09:08 | PN_ITS ---
Patient Problems: Active and Suspected Problems Acute kidney injury (Acute) Sepsis (Acute) Abdominal discomfort in right flank (Acute) Subjective: Follow-up after admission for probable acute pyelonephritis with sepsis. Patient seen and examined. No acute events overnight. Her right flank pain is getting much better. She denies any more nausea vomiting. She has been afebrile overnight, heart rate is down to 100s, blood pressure stable. All over , she is feeling better. - Physical Exam General: Alert, Oriented x3, Cooperative, No apparent distress HEENT: Atraumatic, PERRLA, EOMI Oral: Moist Mucosa, No Gingival or Mucosal Lesions/ Ulcerations Neck: Supple, No JVD, Negative Carotid Bruits, Trachea Midline, Thyroid Normal Size and Texture Lungs: Clear to auscultation, Normal air movement, No rhonchi, No wheeze, No rales Cardiovascular: Regular rate, Regular Rhythm, Normal S1, Normal S2, No murmurs, PMI Normal, Tachycardic Abdomen: Bowel Sounds Present, Soft, Non Tender, Non-Distended, No Hepato- splenomegaly Extremities: No clubbing, No cyanosis, No edema Skin: No rashes, No breakdown Lymphatic: No Cervical, Supraclavicular, or Inguinal Adenopathy Neurological: Cranial nerves II-XII grossly intact, Neuro grossly intact Psych/Mental Status: Normal Affect, Appropriate, Alert and oriented to time, place, person, mood and affect Vital Signs Temp Pulse Resp BP Pulse Ox 97.8 F 117 H 18 95/54 L 99 08/05/17 05:02 08/05/17 05:30 08/05/17 05:02 08/05/17 05:02 08/05/17 07:20 Oxygen Delivery Method Room Air Weight: 93 lb 14.671 oz Body Mass Index (BMI) 16.6 Intake and Output for Last 24 Hours 08/03/17 08/04/17 08/05/17 23:59 23:59 23:59 Intake Total 3136 / 3136 Output Total 1000 / 1000 Balance 2136 / 2136 Laboratory Tests Past 24 Hrs 08/05/17 08/05/17 08/05/17 05:40 05:40 05:40 WBC 25.5 H RBC 3.18 L Hgb 9.3 L Hct 28.6 L MCV 89.9 MCH 29.2 MCHC 32.5 RDW 13.1 RDW Differential 43.0 Plt Count 291 MPV 9.9 Immature Gran % (Auto) 0.900 Neut % (Auto) 86.1 H Lymph % (Auto) 6.0 L [place] % (Auto) 6.9 Eos % (Auto) 0.0 Baso % (Auto) 0.1 Absolute Neuts (auto) 22.0 H Absolute Lymphs (auto) 1.53 Total Counted Not Reportable Differential Comment SCANNED Diff Path Review July Sodium 141 Potassium 4.0 Chloride 112 H Carbon Dioxide 19.0 L Anion Gap 10 BUN 11 Creatinine 0.81 Estim Creat Clear Calc 74.51 Est GFR (MDRD) Af Amer 115 Est GFR (MDRD) Non-Af 95 BUN/Creatinine Ratio 13.5 Glucose 96 Calcium 7.1 L Total Bilirubin 0.70 AST 17 ALT 12 L Alkaline Phosphatase 41 L Total Protein 4.9 L Albumin 2.1 L Globulin 2.8 Albumin/Globulin Ratio 0.8 L Serum , Qual NEGATIVE Medical Necessity - Tobacco Use Smoking Status: Never smoker Assessment/Plan Active and Suspected Problems Acute kidney injury (Acute) Sepsis (Acute) Abdominal discomfort in right flank (Acute) This is a 22 years old female patient presented to the emergency room because of right flank pain/right lumbar region pain, nausea, vomiting and fever and she was found to have highly elevated white blood cell count of more than 39,000 , diagnosed with sepsis of unclear etiology with probable diagnosis of acute pyonephritis and also found to have acute kidney injury. #1 probable acute pyonephritis/sepsis: She is on IV Zosyn. Her white blood cell count is trending down. She has been afebrile overnight, last fever was yesterday around 7 PM. Heart rate is down to 100s, blood pressure stable. Symptoms improved, having less right flank pain and no more nausea vomiting. CT scan abdomen and pelvis revealed no evidence of acute abdominal pathology. Blood and urine cultures are pending. Lactic acid was normal. Plan: Continue same treatment, repeat CBC tomorrow morning. #2 acute kidney injury/mild hyponatremia: Probably prerenal secondary to infection and sepsis. She has been on IV fluids, kidney function is back to normal, sodium normalized. #3 anemia: Admission hemoglobin was 11.7 g/dL, today's improvement is 9.3 g/dL this is likely because of hemodilution. No active bleeding. No indication for transfusion. #4 DVT prophylaxis: Low risk patient, no prophylaxis indicated. This note was generated with [employer] dictation software. It may contain incorrect words, spelling, and punctuation that were not noted in checking the note before signing. Code Visit Inpatient E&M: 40514 Subs Hosp L2
--- NOTE | 2017-08-05 09:22 | PN.SURG_ITS ---
Patient Problems: Active and Suspected Problems Acute kidney injury (Acute) Sepsis (Acute) Abdominal discomfort in right flank (Acute) Subjective: Patient evaluated resting comfortably in bed. She denies abdominal discomfort, nausea, vomiting. She denies burning in her urination. - Physical Exam General: Alert, Oriented x3, Cooperative Abdomen: Bowel Sounds Present, Soft, Non Tender, Non-Distended Vital Signs Temp Pulse Resp BP Pulse Ox 97.8 F 117 H 18 95/54 L 99 08/05/17 05:02 08/05/17 05:30 08/05/17 05:02 08/05/17 05:02 08/05/17 07:20 Oxygen Delivery Method Room Air Weight: 93 lb 14.671 oz Body Mass Index (BMI) 16.6 Intake and Output for Last 24 Hours 08/03/17 08/04/17 08/05/17 23:59 23:59 23:59 Intake Total 3136 / 3136 Output Total 1000 / 1000 Balance 2136 / 2136 Laboratory Tests Past 24 Hrs 08/05/17 08/05/17 08/05/17 05:40 05:40 05:40 WBC 25.5 H RBC 3.18 L Hgb 9.3 L Hct 28.6 L MCV 89.9 MCH 29.2 MCHC 32.5 RDW 13.1 RDW Differential 43.0 Plt Count 291 MPV 9.9 Immature Gran % (Auto) 0.900 Neut % (Auto) 86.1 H Lymph % (Auto) 6.0 L [place] % (Auto) 6.9 Eos % (Auto) 0.0 Baso % (Auto) 0.1 Absolute Neuts (auto) 22.0 H Absolute Lymphs (auto) 1.53 Total Counted Not Reportable Differential Comment SCANNED Diff Path Review July Sodium 141 Potassium 4.0 Chloride 112 H Carbon Dioxide 19.0 L Anion Gap 10 BUN 11 Creatinine 0.81 Estim Creat Clear Calc 74.51 Est GFR (MDRD) Af Amer 115 Est GFR (MDRD) Non-Af 95 BUN/Creatinine Ratio 13.5 Glucose 96 Calcium 7.1 L Total Bilirubin 0.70 AST 17 ALT 12 L Alkaline Phosphatase 41 L Total Protein 4.9 L Albumin 2.1 L Globulin 2.8 Albumin/Globulin Ratio 0.8 L Serum , Qual NEGATIVE Medical Necessity - Tobacco Use Smoking Status: Never smoker Assessment/Plan Active and Suspected Problems Acute kidney injury (Acute) Sepsis (Acute) Abdominal discomfort in right flank (Acute) I am following this patient in conjunction with Dr. Zhou Impression: Acute renal injury. ? Pyelonephritis. WBC trending downward. No abdominal discomfort. WBC trending downward Patient was discussed with Dr. Zhou We will continue to monitor this patient. Code Visit Inpatient E&M: 22593 Subs Hosp L2
--- NOTE | 2017-08-05 12:13 | CASEMGMT ---
RN ANTHONY Face to Face with patient for initial transition planning/care coordination assessment. RN CM introduced self and role at [facility]. Patient lying in bed, alert and oriented, father at bedside. Patient willing to participate in assessment and is able to answer all questions appropriately. Care providers, pharmacy, and demographics verified. Patient lives with parents in 2 story home. Patient wishes to discharge home, denies needs at this time. Patient states she has no further needs or concerns at this time. CM to follow for discharge planning needs that may arise. Disposition Plan: Patient to discharge home with family support and follow-up plans in place.
[2017-08-05] MEDS: 0.9% NaCl Peripheral Flush Adult/Peds IV (15:48)
[2017-08-05] MEDS: 0.9% Normal Saline 1,000 ML 100 ML IV (15:48)
[2017-08-06] VITALS (9 sets, daily range): BP systolic 102–114; BP diastolic 61–77; PULSE 79–124; RESP 18; TEMP 36.6–36.9; O2SAT 95–100
[2017-08-06] MEDS: 0.9% Normal Saline 1,000 ML 150 ML IV ×3 (04:39→19:33)
[2017-08-06] MEDS: 0.9% NaCl Peripheral Flush Adult/Peds IV (04:40)
[2017-08-06] MEDS: Piperacil/Tazobactam 3.375 GM/50 ML ML IV ×3 (05:58→21:19)
[2017-08-06 06:47] LABS: Absolute Lymphocyte Count 1.93 X10^3/ul (0.83-4.51); Absolute Neutrophil Count 13.7 X10^3/uL (2.0-7.7); Basophil# 0.03 X10^3/uL; Basophil% 0.2 % (0-1); Eosinophil# 0.06 X10^3/uL; Eosinophils% 0.3 % (0-5); Hematocrit 28.9 % (37-47); Hemoglobin 9.5 g/dl (12.0-15.0); Lymphocyte # 1.93 X10^3/ul (4.0); Lymphocyte % 10.9 % (19-41); Mean Corp Hgb Conc 32.9 g/gl (32-36); Mean Corpuscular Hgb 29.8 pg (27.0-32.0); Mean Corpuscular Volume 90.6 fL (81-99); Mean Platelet Vol. 10.5 fl (6.2-12.0); Monocyte# 1.95 X10^3/uL; Neutrophil # 13.65 X10^3/uL (2.7-7.7); Neutrophil % 77.1 % (47-70); Platelet Count 291 K/mm3 (150-450); RBC Distribution Width CV 12.8 % (11.6-14.6); RBC Distribution Width SD 41.8 fl (35.1-43.9); Red Blood Count 3.19 M/mm3 (4.2-5.4); White Blood Count 17.7 K/mm3 (4.4-11.0)
[2017-08-06 06:49] LABS: Differential Indicated SCAN CRITERIA MET; POSITIVE COUNT NO; POSITIVE DIFFERENTIAL YES; POSITIVE MORPHOLOGY NO
[2017-08-06 07:02] LABS: Differential Comment SCANNED
[2017-08-06 07:03] LABS: Anion Gap 9 (5-15); BUN 5 mg/dL (7-18); BUN/Creat Ratio 7.8 RATIO (10-20); Calcium,Total 7.5 mg/dL (8.5-10.1); Chloride 113 mmol/L (98-107); Creatinine, Serum 0.64 mg/dL (0.55-1.02); EST Glomerular Filtration Rate 126 mL/min (>60); Est Glom Filt Rate - Afr Amer 152 mL/min (>60); Glucose 94 mg/dL (74-106); Potassium 3.1 mmol/L (3.5-5.1); Sodium Level 142 mmol/L (136-145)
--- NOTE | 2017-08-06 07:18 | CT_ITS ---
STUDY: CT ABDOMEN AND PELVIS WITH CONTRAST REASON FOR EXAM: Female, 22 years old. Abdominal pain and right flank pain. Sepsis. Acute pyelonephritis. RADIATION DOSAGE (If Supplied By Facility): CTDIvol = ( 5.38 ) mGy, DLP = ( 445.38 ) mGycm TECHNIQUE: Transaxial images were obtained from the dome of the diaphragm to the symphysis pubis with oral contrast. 75mL ml of Isovue 300 contrast was administered. Sagittal and coronal images were reconstructed. Individualized dose optimization techniques were used for this CT. COMPARISON: Comparison is made with prior examination dated August 04, 2017. FINDINGS: There are new small bilateral pleural effusions with bibasilar atelectasis. The visualized portions of the heart are within normal limits. Normal liver. Normal gallbladder and extrahepatic biliary system. Normal spleen. Normal pancreas. Normal bilateral adrenal glands. Inhomogeneous enhancement of the kidney worse in the upper and mid portions of the right kidney. This abuts the cortical surface and most likely represents pyelonephritis. There is no evidence of perinephric abscess or fluid collection. Normal left kidney. Normal visualized stomach. Normal small intestine. Normal colon. The appendix is visualized and appears normal. Normal abdominal aorta. Normal inferior vena cava. Normal retroperitoneum. Normal urinary bladder. Small amount of free fluid is seen in the pelvis. Normal abdominal wall. There is straightening of the normal lumbar lordosis. CT/Abdomen/Pelvis WITH Contrast IMPRESSION: Small bilateral pleural effusions with underlying atelectasis. Inhomogeneous enhancement of the right kidney as described with increase in right perinephric markings suggestive of a pyelonephritis. No perinephric abscess is seen. Small amount of fluid is seen in the pelvis. Electronically Signed: Luis Smalls MD at 11:07 EDT Tel [phone], Service support ,
--- NOTE | 2017-08-06 07:33 | PCM.PN.SRG ---
Patient Problems: Active and Suspected Problems Acute kidney injury (Acute) Sepsis (Acute) Abdominal discomfort in right flank (Acute) Subjective: Patient evaluated resting comfortably in bed. She denies abdominal pain/discomfort. She denies nausea, vomiting. She notes feeling much improved. KUB demonstrated hepatomegaly and sludge in the gallbladder. She is tolerating clear liquids well - Physical Exam General: Alert, Oriented x3, Cooperative Abdomen: Bowel Sounds Present, Soft, Non Tender, Non-Distended Vital Signs Temp Pulse Resp BP Pulse Ox 98.1 F 118 H 18 104/62 95 08/06/17 02:41 08/06/17 02:41 08/06/17 02:41 08/06/17 02:41 08/06/17 02:41 Oxygen Delivery Method Room Air Weight: 93 lb 14.671 oz Body Mass Index (BMI) 16.6 Intake and Output for Last 24 Hours 08/04/17 08/05/17 08/06/17 23:59 23:59 23:59 Intake Total 5370 / 5370 2611 / 2611 Output Total 2250 / 2250 2800 / 2800 Balance 3120 / 3120 -189 / -189 Laboratory Tests Past 24 Hrs 08/06/17 08/06/17 05:46 05:46 WBC 17.7 H RBC 3.19 L Hgb 9.5 L Hct 28.9 L MCV 90.6 MCH 29.8 MCHC 32.9 RDW 12.8 RDW Differential 41.8 Plt Count 291 MPV 10.5 Immature Gran % (Auto) 0.500 Neut % (Auto) 77.1 H Lymph % (Auto) 10.9 L [place] % (Auto) 11.0 H Eos % (Auto) 0.3 Baso % (Auto) 0.2 Absolute Neuts (auto) 13.7 H Absolute Lymphs (auto) 1.93 Total Counted Not Reportable Differential Comment SCANNED Diff Path Review May foll Sodium 142 Potassium 3.1 L Chloride 113 H Carbon Dioxide 20.0 L Anion Gap 9 BUN 5 L Creatinine 0.64 Estim Creat Clear Calc 94.30 Est GFR (MDRD) Af Amer 152 Est GFR (MDRD) Non-Af 126 BUN/Creatinine Ratio 7.8 L Glucose 94 Calcium 7.5 L Medical Necessity - Tobacco Use Smoking Status: Never smoker Assessment/Plan Active and Suspected Problems Acute kidney injury (Acute) Sepsis (Acute) Abdominal discomfort in right flank (Acute) I am following this patient in conjunction with Dr. Zhou Impression: Acute renal injury, resolved. ? Pyelonephritis. WBC trending downward. No abdominal discomfort. WBC trending downward KUB unremarkable Recommend CT of the abdomen and pelvis with oral and IV contrast today We will continue to monitor this patient Code Visit Inpatient E&M: 19872 [facility] Hosp L1
--- NOTE | 2017-08-06 07:38 | PN.SURG_ITS ---
Patient Problems: Active and Suspected Problems Acute kidney injury (Acute) Sepsis (Acute) Abdominal discomfort in right flank (Acute) Subjective: Patient evaluated resting comfortably in bed. She denies abdominal pain/ discomfort. She denies nausea, vomiting. She notes feeling much improved. KUB demonstrated hepatomegaly and sludge in the gallbladder. She is tolerating clear liquids well - Physical Exam General: Alert, Oriented x3, Cooperative Abdomen: Bowel Sounds Present, Soft, Non Tender, Non-Distended Vital Signs Temp Pulse Resp BP Pulse Ox 98.1 F 118 H 18 104/62 95 08/06/17 02:41 08/06/17 02:41 08/06/17 02:41 08/06/17 02:41 08/06/17 02:41 Oxygen Delivery Method Room Air Weight: 93 lb 14.671 oz Body Mass Index (BMI) 16.6 Intake and Output for Last 24 Hours 08/04/17 08/05/17 08/06/17 23:59 23:59 23:59 Intake Total 5370 / 5370 2611 / 2611 Output Total 2250 / 2250 2800 / 2800 Balance 3120 / 3120 -189 / -189 Laboratory Tests Past 24 Hrs 08/06/17 08/06/17 05:46 05:46 WBC 17.7 H RBC 3.19 L Hgb 9.5 L Hct 28.9 L MCV 90.6 MCH 29.8 MCHC 32.9 RDW 12.8 RDW Differential 41.8 Plt Count 291 MPV 10.5 Immature Gran % (Auto) 0.500 Neut % (Auto) 77.1 H Lymph % (Auto) 10.9 L [place] % (Auto) 11.0 H Eos % (Auto) 0.3 Baso % (Auto) 0.2 Absolute Neuts (auto) 13.7 H Absolute Lymphs (auto) 1.93 Total Counted Not Reportable Differential Comment SCANNED Diff Path Review May foll Sodium 142 Potassium 3.1 L Chloride 113 H Carbon Dioxide 20.0 L Anion Gap 9 BUN 5 L Creatinine 0.64 Estim Creat Clear Calc 94.30 Est GFR (MDRD) Af Amer 152 Est GFR (MDRD) Non-Af 126 BUN/Creatinine Ratio 7.8 L Glucose 94 Calcium 7.5 L Medical Necessity - Tobacco Use Smoking Status: Never smoker Assessment/Plan Active and Suspected Problems Acute kidney injury (Acute) Sepsis (Acute) Abdominal discomfort in right flank (Acute) I am following this patient in conjunction with Dr. Zhou Impression: Acute renal injury, resolved. ? Pyelonephritis. WBC trending downward. No abdominal discomfort. WBC trending downward KUB unremarkable Recommend CT of the abdomen and pelvis with oral and IV contrast today We will continue to monitor this patient Code Visit Inpatient E&M: [id number] [facility] Hosp L1
--- NOTE | 2017-08-06 07:52 | PN_ITS ---
Patient Problems: Active and Suspected Problems Acute kidney injury (Acute) Sepsis (Acute) Abdominal discomfort in right flank (Acute) Subjective: Chief complaint: Follow-up after admission for abdominal pain, fever, found to have sepsis secondary to presumed acute pyelonephritis. Patient seen and examined. No acute events overnight. Symptomatically, she has no more flank pain. Denies any more nausea vomiting. She still having spikes of fever and she still tachycardic. Her blood pressure is stable, pulse ox is maintained on room air. - Physical Exam General: Alert, Oriented x3, Cooperative, No apparent distress HEENT: Atraumatic, PERRLA, EOMI Oral: Moist Mucosa, No Gingival or Mucosal Lesions/ Ulcerations Neck: Supple, No JVD, Negative Carotid Bruits, Trachea Midline, Thyroid Normal Size and Texture Lungs: Clear to auscultation, No rhonchi, No wheeze, No rales, Diminished Cardiovascular: Regular rate, Regular Rhythm, Normal S1, Normal S2, No murmurs, Tachycardic Abdomen: Bowel Sounds Present, Soft, Non Tender, Non-Distended, No Hepato- splenomegaly Extremities: No clubbing, No cyanosis, No edema Skin: No rashes, No breakdown Lymphatic: No Cervical, Supraclavicular, or Inguinal Adenopathy Neurological: Cranial nerves II-XII grossly intact, Neuro grossly intact Psych/Mental Status: Normal Affect, Appropriate Vital Signs Temp Pulse Resp BP Pulse Ox 98.1 F 118 H 18 104/62 95 08/06/17 02:41 08/06/17 02:41 08/06/17 02:41 08/06/17 02:41 08/06/17 02:41 Oxygen Delivery Method Room Air Weight: 93 lb 14.671 oz Body Mass Index (BMI) 16.6 Intake and Output for Last 24 Hours 08/04/17 08/05/17 08/06/17 23:59 23:59 23:59 Intake Total 5370 / 5370 2611 / 2611 Output Total 2250 / 2250 2800 / 2800 Balance 3120 / 3120 -189 / -189 Laboratory Tests Past 24 Hrs 08/06/17 08/06/17 05:46 05:46 WBC 17.7 H RBC 3.19 L Hgb 9.5 L Hct 28.9 L MCV 90.6 MCH 29.8 MCHC 32.9 RDW 12.8 RDW Differential 41.8 Plt Count 291 MPV 10.5 Immature Gran % (Auto) 0.500 Neut % (Auto) 77.1 H Lymph % (Auto) 10.9 L [place] % (Auto) 11.0 H Eos % (Auto) 0.3 Baso % (Auto) 0.2 Absolute Neuts (auto) 13.7 H Absolute Lymphs (auto) 1.93 Total Counted Not Reportable Differential Comment SCANNED Diff Path Review July Sodium 142 Potassium 3.1 L Chloride 113 H Carbon Dioxide 20.0 L Anion Gap 9 BUN 5 L Creatinine 0.64 Estim Creat Clear Calc 94.30 Est GFR (MDRD) Af Amer 152 Est GFR (MDRD) Non-Af 126 BUN/Creatinine Ratio 7.8 L Glucose 94 Calcium 7.5 L Medical Necessity - Tobacco Use Smoking Status: Never smoker Assessment/Plan Active and Suspected Problems Acute kidney injury (Acute) Sepsis (Acute) Abdominal discomfort in right flank (Acute) This is a 22 years old female patient presented to the emergency room because of right flank pain/right lumbar region pain, nausea, vomiting and fever and she was found to have highly elevated white blood cell count of more than 39,000 , diagnosed with sepsis of unclear etiology with probable diagnosis of acute pyonephritis and also found to have acute kidney injury. #1 Abdominal pain/fever/probable acute pyonephritis/sepsis: She is on day 3 of IV Zosyn. Her white blood cell count continued to drop. She is still having spikes of fever and she still tachycardic, blood pressure stable. She has normal symptoms. CT scan abdomen and pelvis revealed no evidence of acute abdominal pathology. Urine culture showed no growth. Blood cultures are pending. Lactic acid was normal. General surgery is following. Plan: Continue same treatment, CT scan abdomen and pelvis with IV and oral contrast. #2 acute kidney injury/mild hyponatremia/hypokalemia: Probably prerenal secondary to infection and sepsis. She has been on IV fluids, kidney function is back to normal, sodium normalized. Potassium is low today and it is 3.1. Plan: Check serum magnesium, replace potassium with IV potassium chloride, repeat BMP tomorrow morning. #3 anemia: Admission hemoglobin was 11.7 g/dL, today's improvement is 9.5 g/dL this is likely because of hemodilution. No active bleeding. No indication for transfusion. #4 DVT prophylaxis: Low risk patient, no prophylaxis indicated. This note was generated with [employer] software. It may contain incorrect words, spelling, and punctuation that were not noted in checking the note before signing.
[2017-08-06 08:03] LABS: Magnesium 1.7 mg/dL (1.6-2.6)
[2017-08-06 11:24] LABS: Pathologist Review Reviewed
[2017-08-06 11:28] LABS: Pathologist Review Reviewed
[2017-08-06] MEDS: Acetaminophen 325 MG Tablet 650 MG PO (12:53)
[2017-08-07] VITALS (11 sets, daily range): BP systolic 104–115; BP diastolic 69–80; PULSE 80–114; RESP 16–18; TEMP 36.4–37.7; O2SAT 99–100
[2017-08-07] MEDS: 0.9% Normal Saline 1,000 ML 150 ML IV (01:59)
[2017-08-07] MEDS: Piperacil/Tazobactam 3.375 GM/50 ML ML IV ×3 (06:35→21:20)
[2017-08-07 07:04] LABS: Absolute Neutrophil Count 5.7 X10^3/uL (2.0-7.7); Basophil# 0.01 X10^3/uL; Basophil% 0.1 % (0-1); Eosinophil# 0.05 X10^3/uL; Eosinophils% 0.5 % (0-5); Hematocrit 29.5 % (37-47); Hemoglobin 9.8 g/dl (12.0-15.0); Lymphocyte % 24.1 % (19-41); Mean Corp Hgb Conc 33.2 g/gl (32-36); Mean Corpuscular Hgb 29.4 pg (27.0-32.0); Mean Corpuscular Volume 88.6 fL (81-99); Mean Platelet Vol. 9.5 fl (6.2-12.0); Monocyte# 1.09 X10^3/uL; Monocyte% 11.9 % (0-10); Neutrophil # 5.74 X10^3/uL (2.7-7.7); Platelet Count 298 K/mm3 (150-450); RBC Distribution Width CV 13.2 % (11.6-14.6); RBC Distribution Width SD 42.4 fl (35.1-43.9); Red Blood Count 3.33 M/mm3 (4.2-5.4); White Blood Count 9.1 K/mm3 (4.4-11.0)
[2017-08-07 07:06] LABS: POSITIVE COUNT NO; POSITIVE DIFFERENTIAL NO; POSITIVE MORPHOLOGY NO
[2017-08-07 07:16] LABS: Anion Gap 7 (5-15); BUN 4 mg/dL (7-18); BUN/Creat Ratio 6.8 RATIO (10-20); Calcium,Total 7.7 mg/dL (8.5-10.1); Chloride 115 mmol/L (98-107); Creatinine, Serum 0.59 mg/dL (0.55-1.02); EST Glomerular Filtration Rate 138 mL/min (>60); Est Glom Filt Rate - Afr Amer 167 mL/min (>60); Estimated Creatinine Clearance 102.29 ml/min; Glucose 80 mg/dL (74-106); Potassium 3.4 mmol/L (3.5-5.1); Sodium Level 144 mmol/L (136-145)
[2017-08-07] MEDS: 0.9% Normal Saline 1,000 ML 100 ML IV ×2 (08:14→17:49)
--- NOTE | 2017-08-07 08:41 | PCM.PROGNOTE ---
Patient Problems: Active and Suspected Problems Acute kidney injury (Acute) Sepsis (Acute) Abdominal discomfort in right flank (Acute) Subjective: Chief complaint follow-up after admission for acute pyelonephritis with sepsis. Patient seen and examined. No acute events overnight. This morning, she was crying because she said she is homesick and wants to go home. She has normal symptoms, no more abdominal pain or flank pain. She has been afebrile since yesterday afternoon. Tachycardia is coming down, blood pressure stable. She denies any urinary symptoms. - Physical Exam General: Alert, Oriented x3, Cooperative, No apparent distress HEENT: Atraumatic, PERRLA, EOMI Oral: Moist Mucosa, No Gingival or Mucosal Lesions/ Ulcerations Neck: Supple, No JVD, Negative Carotid Bruits, Trachea Midline, Thyroid Normal Size and Texture Lungs: Clear to auscultation, Normal air movement, No rhonchi, No wheeze, No rales Cardiovascular: Regular rate, Regular Rhythm, Normal S1, Normal S2, No murmurs Abdomen: Bowel Sounds Present, Soft, Non Tender, Non-Distended, No Hepato-splenomegaly Extremities: No clubbing, No cyanosis, No edema Skin: No rashes, No breakdown Lymphatic: No Cervical, Supraclavicular, or Inguinal Adenopathy Neurological: Cranial nerves II-XII grossly intact, Neuro grossly intact Psych/Mental Status: Normal Affect, Alert and oriented to time, place, person, mood and affect Vital Signs Temp Pulse Resp BP Pulse Ox 99.9 F H 80 16 110/80 100 08/07/17 08:18 08/07/17 08:18 08/07/17 08:18 08/07/17 08:18 08/07/17 08:18 Oxygen Delivery Method Room Air Weight: 93 lb 14.671 oz Body Mass Index (BMI) 16.6 Intake and Output for Last 24 Hours 08/05/17 08/06/17 08/07/17 23:59 23:59 23:59 Intake Total 5370 / 5370 5090 / 5090 2620 / 2620 Output Total 2250 / 2250 4500 / 4500 3600 / 3600 Balance 3120 / 3120 590 / 590 -980 / -980 Laboratory Tests Past 24 Hrs 08/05/17 08/07/17 08/07/17 05:40 06:38 06:38 WBC 9.1 RBC 3.33 L Hgb 9.8 L Hct 29.5 L MCV 88.6 MCH 29.4 MCHC 33.2 RDW 13.2 RDW Differential 42.4 Plt Count 298 MPV 9.5 Immature Gran % (Auto) 0.400 Neut % (Auto) 63.0 Lymph % (Auto) 24.1 [place] % (Auto) 11.9 H Eos % (Auto) 0.5 Baso % (Auto) 0.1 Absolute Neuts (auto) 5.7 Absolute Lymphs (auto) 2.20 Total Counted Not Reportable Diff Path Review Reviewed Sodium 144 Potassium 3.4 L Chloride 115 H Carbon Dioxide 22.0 Anion Gap 7 BUN 4 L Creatinine 0.59 Estim Creat Clear Calc 102.29 Est GFR (MDRD) Af Amer 167 Est GFR (MDRD) Non-Af 138 BUN/Creatinine Ratio 6.8 L Glucose 80 Calcium 7.7 L Medical Necessity - Tobacco Use Smoking Status: Never smoker Assessment/Plan Active and Suspected Problems Acute kidney injury (Acute) Sepsis (Acute) Abdominal discomfort in right flank (Acute) This is a 22 years old female patient presented to the emergency room because of right flank pain/right lumbar region pain, nausea, vomiting and fever and she was found to have highly elevated white blood cell count of more than 39,000, diagnosed with sepsis of unclear etiology with probable diagnosis of acute pyonephritis and also found to have acute kidney injury. #1 Acute right pyelonephritis/sepsis: She is on day 3 of IV Zosyn. She is asymptomatic, no more complaints. White blood cell count is back to normal. Last spike of fever was yesterday around 4 PM. Heart rate has been coming down to 80s-90s. CT scan abdomen and pelvis with contrast revealed inhomogenous enhancement of the right kidney with increased perinephric stranding, no abscess, revealed small bilateral pleural effusion which is likely reactive. Urine culture showed no growth. One bottle of blood cultures with no growth in 48 hours and the other one is pending. Plan: Continue same treatment, anticipate discharge home tomorrow. #2 small bilateral pleural effusion: This is likely reactive secondary to acute pyelonephritis and sepsis as well as atelectasis. Plan for ambulate, incentive spirometer. #3 acute kidney injury/mild hyponatremia/hypokalemia: Kidney function as well as sodium level is back to normal. She is on potassium replacement, today's potassium is 3.4, improved. Plan to continue potassium replacement by mouth. #4 anemia: Admission hemoglobin was 11.7 g/dL, today's improvement is 9.8 g/dL this is likely because of hemodilution. No active bleeding. No indication for transfusion. #5 DVT prophylaxis: Low risk patient, no prophylaxis indicated. This note was generated with [employer] dictation software. It may contain incorrect words, spelling, and punctuation that were not noted in checking the note before signing. Code Visit Inpatient E&M: [id number] Subs Hosp L2
--- NOTE | 2017-08-07 08:46 | PN_ITS ---
Patient Problems: Active and Suspected Problems Acute kidney injury (Acute) Sepsis (Acute) Abdominal discomfort in right flank (Acute) Subjective: Chief complaint follow-up after admission for acute pyelonephritis with sepsis. Patient seen and examined. No acute events overnight. This morning, she was crying because she said she is homesick and wants to go home. She has normal symptoms, no more abdominal pain or flank pain. She has been afebrile since yesterday afternoon. Tachycardia is coming down, blood pressure stable. She denies any urinary symptoms. - Physical Exam General: Alert, Oriented x3, Cooperative, No apparent distress HEENT: Atraumatic, PERRLA, EOMI Oral: Moist Mucosa, No Gingival or Mucosal Lesions/ Ulcerations Neck: Supple, No JVD, Negative Carotid Bruits, Trachea Midline, Thyroid Normal Size and Texture Lungs: Clear to auscultation, Normal air movement, No rhonchi, No wheeze, No rales Cardiovascular: Regular rate, Regular Rhythm, Normal S1, Normal S2, No murmurs Abdomen: Bowel Sounds Present, Soft, Non Tender, Non-Distended, No Hepato- splenomegaly Extremities: No clubbing, No cyanosis, No edema Skin: No rashes, No breakdown Lymphatic: No Cervical, Supraclavicular, or Inguinal Adenopathy Neurological: Cranial nerves II-XII grossly intact, Neuro grossly intact Psych/Mental Status: Normal Affect, Alert and oriented to time, place, person, mood and affect Vital Signs Temp Pulse Resp BP Pulse Ox 99.9 F H 80 16 110/80 100 08/07/17 08:18 08/07/17 08:18 08/07/17 08:18 08/07/17 08:18 08/07/17 08:18 Oxygen Delivery Method Room Air Weight: 93 lb 14.671 oz Body Mass Index (BMI) 16.6 Intake and Output for Last 24 Hours 08/05/17 08/06/17 08/07/17 23:59 23:59 23:59 Intake Total 5370 / 5370 5090 / 5090 2620 / 2620 Output Total 2250 / 2250 4500 / 4500 3600 / 3600 Balance 3120 / 3120 590 / 590 -980 / -980 Laboratory Tests Past 24 Hrs 08/05/17 08/07/17 08/07/17 05:40 06:38 06:38 WBC 9.1 RBC 3.33 L Hgb 9.8 L Hct 29.5 L MCV 88.6 MCH 29.4 MCHC 33.2 RDW 13.2 RDW Differential 42.4 Plt Count 298 MPV 9.5 Immature Gran % (Auto) 0.400 Neut % (Auto) 63.0 Lymph % (Auto) 24.1 [place] % (Auto) 11.9 H Eos % (Auto) 0.5 Baso % (Auto) 0.1 Absolute Neuts (auto) 5.7 Absolute Lymphs (auto) 2.20 Total Counted Not Reportable Diff Path Review Reviewed Sodium 144 Potassium 3.4 L Chloride 115 H Carbon Dioxide 22.0 Anion Gap 7 BUN 4 L Creatinine 0.59 Estim Creat Clear Calc 102.29 Est GFR (MDRD) Af Amer 167 Est GFR (MDRD) Non-Af 138 BUN/Creatinine Ratio 6.8 L Glucose 80 Calcium 7.7 L Medical Necessity - Tobacco Use Smoking Status: Never smoker Assessment/Plan Active and Suspected Problems Acute kidney injury (Acute) Sepsis (Acute) Abdominal discomfort in right flank (Acute) This is a 22 years old female patient presented to the emergency room because of right flank pain/right lumbar region pain, nausea, vomiting and fever and she was found to have highly elevated white blood cell count of more than 39,000 , diagnosed with sepsis of unclear etiology with probable diagnosis of acute pyonephritis and also found to have acute kidney injury. #1 Acute right pyelonephritis/sepsis: She is on day 3 of IV Zosyn. She is asymptomatic, no more complaints. White blood cell count is back to normal. Last spike of fever was yesterday around 4 PM. Heart rate has been coming down to 80s-90s. CT scan abdomen and pelvis with contrast revealed inhomogenous enhancement of the right kidney with increased perinephric stranding, no abscess , revealed small bilateral pleural effusion which is likely reactive. Urine culture showed no growth. One bottle of blood cultures with no growth in 48 hours and the other one is pending. Plan: Continue same treatment, anticipate discharge home tomorrow. #2 small bilateral pleural effusion: This is likely reactive secondary to acute pyelonephritis and sepsis as well as atelectasis. Plan for ambulate, incentive spirometer. #3 acute kidney injury/mild hyponatremia/hypokalemia: Kidney function as well as sodium level is back to normal. She is on potassium replacement, today's potassium is 3.4, improved. Plan to continue potassium replacement by mouth. #4 anemia: Admission hemoglobin was 11.7 g/dL, today's improvement is 9.8 g/dL this is likely because of hemodilution. No active bleeding. No indication for transfusion. #5 DVT prophylaxis: Low risk patient, no prophylaxis indicated. This note was generated with [employer] dictation software. It may contain incorrect words, spelling, and punctuation that were not noted in checking the note before signing. Code Visit Inpatient E&M: 83621 Subs Hosp L2
[2017-08-07 14:52] LABS: Pathologist Review Reviewed
[2017-08-08 02:59] VITALS: PULSE 81
[2017-08-08 03:49] VITALS: BP 108/73; PULSE 87; RESP 16; TEMP 37.2; O2SAT 98
[2017-08-08] MEDS: 0.9% Normal Saline 1,000 ML 100 ML IV (03:49)
[2017-08-08] MEDS: Piperacil/Tazobactam 3.375 GM/50 ML ML IV (06:15)
--- NOTE | 2017-08-08 08:58 | PCM.DC ---
- Discharge Diagnoses Current Active Problems: Current Active and Chronic Problems Acute kidney injury (Acute) Acute pyelonephritis (Chronic) Sepsis (Acute) Abdominal discomfort in right flank (Acute) You will use the following diet at home:: Regular Your food should be the consistency of: Regular Discharge Activity: Return to Normal Activity Weight Bearing Status: Full weight bearing Call your doctor if you observe: Fever of 101 or Higher, Shortness of breath, Dizziness, Fainting spells, Chest pain, Increased palpitations (irregular heartbeat), Uncontrolled pain Instructions: Discharge Instructions for Pyelonephritis Allergies/Adverse Reactions: Allergies No Known Allergies Allergy (Verified 08/04/17 12:19) Medications to take at Discharge l-Norgest/E.estradiol-E.estrad [Levono-E Estrad 0.15-0.03-0.01] 1 tab PO DAILY 08/04/17 Levofloxacin [Levaquin] 750 mg PO DAILY #7 tab 08/08/17 The following prescriptions were given: Levofloxacin [Levaquin] 750 mg PO DAILY #7 tab Primary Care Physician: Daniel Brink DO [Primary Care Provider] - Please follow up with your Primary Care Physician in: 1 week.
[2017-08-08 09:43] VITALS: BP 113/78; PULSE 96; RESP 16; TEMP 37; O2SAT 99
--- NOTE | 2017-08-08 14:50 | PCM.DC.SUM ---
Discharge Date and Diagnosis Date of Admission: 08/04/17 Date of Discharge: 08/08/17 - Primary Discharge Diagnosis #1 acute right pyelonephritis. #2 sepsis. #3 small bilateral pleural effusion, reactive secondary to acute pyelonephritis and sepsis as well as atelectasis. #4 acute kidney injury, hyponatremia, hypokalemia. - Secondary Discharge Diagnosis Chronic Problems Acute pyelonephritis (Chronic) Hospital Course and Treatment Imaging Results: Clinical Impression(s) from Imaging Studies Abdomen/Pelvis CT 08/04/17 13:11 Abdomen Ultrasound 08/05/17 05:55 IMPRESSION: Hepatomegaly. Sludge in the gallbladder. Electronically Signed: Gómez Garcia MD at 16:21 EDT , Service support , Abdomen/Pelvis CT 08/06/17 07:18 IMPRESSION: Small bilateral pleural effusions with underlying atelectasis. Inhomogeneous enhancement of the right kidney as described with increase in right perinephric markings suggestive of a pyelonephritis. No perinephric abscess is seen. Small amount of fluid is seen in the pelvis. Electronically Signed: Luis Smalls MD at 11:07 EDT Tel [phone], Service support , Dr. Zhou, general surgery. Procedures: None Summary of Care Provided: Patient seen and examined on the day of discharge and appeared to be stable to be discharged home. She remained afebrile for 8 hours. She has normal symptoms. Heart rate has been around 100 up to 110, blood pressure stable. Other vital signs stable. - Physical Exam General: Alert, Oriented x3, Cooperative, No apparent distress. HEENT: Atraumatic, PERRLA, EOMI. Neck: Supple, No JVD, Negative Carotid Bruits, Trachea Midline, Thyroid Normal. Lungs: Clear to auscultation, Normal air movement, No rhonchi, No wheeze, No rales. Cardiovascular: Regular rate, Regular Rhythm, Normal S1, Normal S2, PMI Normal. Abdomen: Bowel Sounds Present, Soft, Non Tender, Non-Distended, No Hepato-splenomegaly. Extremities: No clubbing, No cyanosis, No edema Skin: No rashes, No breakdown Neurological: Neuro grossly intact Vital Signs stable. Hospital course: The patient is a 22 year old F admitted because of right flank pain/right lumbar region pain, nausea and vomiting as well as fever and she was found to have sepsis secondary to acute right pyelonephritis which was complicated by acute kidney injury and active small bilateral pleural effusion. Upon admission, patient had significant leukocytosis and her white blood cell count was more than 59,000. CT scan abdomen and pelvis without contrast done on admission and showed no evidence of acute intra-abdominal pathology, nonvisualized appendix and no definite obstructive uropathy. It was treated with IV antibiotics, IV fluids and IV antiemetics. She was started on IV Zosyn. She has been having spikes of high-grade fever as well as tachycardia throughout the admission. The first 2 days, patient remained febrile and tachycardic although her white blood cell count started to come down. CT scan abdomen and pelvis with oral and IV contrast repeated and revealed findings consistent with right pyelonephritis without evidence of perinephric abscess, showed small bilateral pleural effusion with underlying atelectasis which is likely secondary to sepsis and pyelonephritis. Was continued on IV Zosyn. His urine culture revealed no growth. Blood culture showed no growth in 48 hours. After the third day, patient's fever started to come down as well as the white blood cell count. Her admission creatinine was 1.58 and with IV fluid therapy, came down back to normal. Sodium and potassium was slightly low and were replaced and corrected. She remained afebrile for almost 48 hours and her vital signs remained stable except her heart rate has been jumping up to 110. Patient discharged home in a stable medical condition, discharged on Levaquin 750 mg p.o. daily for 7 days, recommended follow-up with PCP in 1 week. Discharge Activity: Return to Normal Activity Weight Bearing Status: Full weight bearing Call your doctor if you observe: Fever of 101 or Higher, Shortness of breath, Dizziness, Fainting spells, Chest pain, Increased palpitations (irregular heartbeat), Uncontrolled pain Home Medications: Medications to take at Discharge l-Norgest/E.estradiol-E.estrad [Levono-E Estrad 0.15-0.03-0.01] 1 tab PO DAILY 08/04/17 Levofloxacin [Levaquin] 750 mg PO DAILY #7 tab 05/17/18 Following Prescrptions Were Given to Patient: Levofloxacin [Levaquin] 750 mg PO DAILY #7 tab Primary Care Physician: Daniel Brink DO [Primary Care Provider] - Please follow up with your Primary Care Physician in: 1 week. Patient Instructions: Discharge Instructions for Pyelonephritis Disposition: Home Minutes spent on discharge:: 32 Patient Condition:: Stable Medical Necessity - Tobacco Use Smoking Status: Never smoker Meaningful Use Info Meaningful Use Diagnoses (Choose all that apply): None applicable Code Visit Inpatient E&M: 73007 Disch Hosp
--- NOTE | 2017-08-08 14:56 | DS.PCM_ITS ---
Discharge Date and Diagnosis Date of Admission: 08/04/17 Date of Discharge: 08/08/17 - Primary Discharge Diagnosis #1 acute right pyelonephritis. #2 sepsis. #3 small bilateral pleural effusion, reactive secondary to acute pyelonephritis and sepsis as well as atelectasis. #4 acute kidney injury, hyponatremia, hypokalemia. - Secondary Discharge Diagnosis Chronic Problems Acute pyelonephritis (Chronic) Hospital Course and Treatment Imaging Results: Clinical Impression(s) from Imaging Studies Abdomen/Pelvis CT 08/04/17 13:11 Abdomen Ultrasound 08/05/17 05:55 IMPRESSION: Hepatomegaly. Sludge in the gallbladder. Electronically Signed: Gómez Garcia MD at 16:21 EDT , Service support , Abdomen/Pelvis CT 08/06/17 07:18 IMPRESSION: Small bilateral pleural effusions with underlying atelectasis. Inhomogeneous enhancement of the right kidney as described with increase in right perinephric markings suggestive of a pyelonephritis. No perinephric abscess is seen. Small amount of fluid is seen in the pelvis. Electronically Signed: Luis Smalls MD at 11:07 EDT Tel [phone], Service support , Dr. Zhou, general surgery. Procedures: None Summary of Care Provided: Patient seen and examined on the day of discharge and appeared to be stable to be discharged home. She remained afebrile for 8 hours. She has normal symptoms. Heart rate has been around 100 up to 110, blood pressure stable. Other vital signs stable. - Physical Exam General: Alert, Oriented x3, Cooperative, No apparent distress. HEENT: Atraumatic, PERRLA, EOMI. Neck: Supple, No JVD, Negative Carotid Bruits, Trachea Midline, Thyroid Normal. Lungs: Clear to auscultation, Normal air movement, No rhonchi, No wheeze, No rales. Cardiovascular: Regular rate, Regular Rhythm, Normal S1, Normal S2, PMI Normal. Abdomen: Bowel Sounds Present, Soft, Non Tender, Non-Distended, No Hepato- splenomegaly. Extremities: No clubbing, No cyanosis, No edema Skin: No rashes, No breakdown Neurological: Neuro grossly intact Vital Signs stable. Hospital course: The patient is a 22 year old F admitted because of right flank pain/right lumbar region pain, nausea and vomiting as well as fever and she was found to have sepsis secondary to acute right pyelonephritis which was complicated by acute kidney injury and active small bilateral pleural effusion. Upon admission , patient had significant leukocytosis and her white blood cell count was more than 59,000. CT scan abdomen and pelvis without contrast done on admission and showed no evidence of acute intra-abdominal pathology, nonvisualized appendix and no definite obstructive uropathy. It was treated with IV antibiotics, IV fluids and IV antiemetics. She was started on IV Zosyn. She has been having spikes of high-grade fever as well as tachycardia throughout the admission. The first 2 days, patient remained febrile and tachycardic although her white blood cell count started to come down. CT scan abdomen and pelvis with oral and IV contrast repeated and revealed findings consistent with right pyelonephritis without evidence of perinephric abscess, showed small bilateral pleural effusion with underlying atelectasis which is likely secondary to sepsis and pyelonephritis. Was continued on IV Zosyn. His urine culture revealed no growth. Blood culture showed no growth in 48 hours. After the third day, patient's fever started to come down as well as the white blood cell count. Her admission creatinine was 1.58 and with IV fluid therapy, came down back to normal. Sodium and potassium was slightly low and were replaced and corrected. She remained afebrile for almost 48 hours and her vital signs remained stable except her heart rate has been jumping up to 110. Patient discharged home in a stable medical condition, discharged on Levaquin 750 mg p.o. daily for 7 days, recommended follow-up with PCP in 1 week. Discharge Activity: Return to Normal Activity Weight Bearing Status: Full weight bearing Call your doctor if you observe: Fever of 101 or Higher, Shortness of breath, Dizziness, Fainting spells, Chest pain, Increased palpitations (irregular heartbeat), Uncontrolled pain Home Medications: Medications to take at Discharge l-Norgest/E.estradiol-E.estrad [Levono-E Estrad 0.15-0.03-0.01] 1 tab PO DAILY 08/04/17 Levofloxacin [Levaquin] 750 mg PO DAILY #7 tab 05/17/18 Following Prescrptions Were Given to Patient: Levofloxacin [Levaquin] 750 mg PO DAILY #7 tab Primary Care Physician: Daniel Brink DO [Primary Care Provider] - Please follow up with your Primary Care Physician in: 1 week. Patient Instructions: Discharge Instructions for Pyelonephritis Disposition: Home Minutes spent on discharge:: 32 Patient Condition:: Stable Medical Necessity - Tobacco Use Smoking Status: Never smoker Meaningful Use Info Meaningful Use Diagnoses (Choose all that apply): None applicable Code Visit Inpatient E&M: 86992 Disch Hosp
== END 2017-08-08 10:05 | disposition home or self-care (01) | DRG 689 ==
LOC: ED 16:05 → MS3 16:59
PROVIDERS: Admitting Provider Hospitalist; Emergency Provider Emergency Medicine; Family Provider Family Medicine; PCP Family Medicine; Visit Provider Hospitalist
DX: N10 Acute pyelonephritis (principal); A41.9 Sepsis, unspecified organism; E87.1 Hypo-osmolality and hyponatremia; J90 Pleural effusion, not elsewhere classified; N17.9 Acute kidney failure, unspecified; E87.6 Hypokalemia; D64.9 Anemia, unspecified
CPT/HCPCS: 36415; 74176; 74177; 76700; 80048; 80053; 80076; 81001; 83605; 83690; 83735; 84703; 85025; 87040; 87086; 99284; J7030; J7040; Q9967; A4216; J0696; J2405

== ENCOUNTER 2022-02-10 17:42 | Emergency (ER) | payer BC, SELFPAY ==
[2022-02-10 17:44] VITALS: BP 115/84; PULSE 130; RESP 20; TEMP 37.6; O2SAT 97; BMI 16.5
[2022-02-10 17:46] VITALS: BP 115/84; PULSE 130; RESP 20; TEMP 37.6; O2SAT 97
--- NOTE | 2022-02-10 18:04 | CT_ITS ---
STUDY: CT ABDOMEN AND PELVIS WITHOUT CONTRAST REASON FOR EXAM: Female, 26 years old. Pain RADIATION DOSAGE (If Supplied By Facility): CTDIvol = ( 6.04 ) mGy, DLP = ( 262.73 ) mGycm TECHNIQUE: Transaxial images were obtained from the dome of the diaphragm to the symphysis pubis without oral contrast, and without intravenous contrast. Sagittal and coronal images were reconstructed. Individualized dose optimization techniques were used for this CT. COMPARISON: None. FINDINGS: The visualized lung bases are unremarkable. The visualized portions of the heart are within normal limits. Normal liver. Normal gallbladder and extrahepatic biliary system. Normal spleen. Normal pancreas. Normal bilateral adrenal glands. Normal right kidney. Normal left kidney. Normal visualized stomach. Air-fluid levels within the small bowel. Increased stool throughout the colon. Appendix is not clearly identified. Normal abdominal aorta. Normal inferior vena cava. Normal retroperitoneum. Normal urinary bladder. Uterus normal. Normal abdominal wall. Normal osseous structures. CT/Abdomen/Pelvis without Cont IMPRESSION: Increased stool. Appendix is not clearly identified and therefore appendicitis is difficult to exclude. Intravenous contrast and delayed oral contrast may be helpful if clinically warranted. No radiodense urolithiasis. Electronically Signed: Papito Platt MD at 19:30 [facility] ,
--- NOTE | 2022-02-10 18:22 | EX.ED.DYSGE1 ---
HPI History of Present Illness Chief Complaint: Flank Pain Narrative Narrative: 26-year-old female presenting with right lower back pain for most of this week. Initially it started off as something they thought was musculoskeletal. Her significant other was massaging this and she was taking ibuprofen and Tylenol with some intermittent relief. She is been stretching and at times it seems to help. The pain comes and goes. She describes it as aching. She states that in the past she had a UTI with kidney infection but the pain was more constant. His pain is coming gone. Today it was noted that she had a temperature of 102 at home. She was not medicated and when she arrived she is still afebrile at 99.6. Patient states the pain is improved currently. She does not have any nausea right now. She denies any urinary symptoms. She states he is actively trying to get but her last menstrual period was the end of this last month. Was on time and normal. She has not had any vaginal complaints. No cough, shortness of breath. No chills or body aches. PFSH PFSH Home Medications ondansetron 4 mg disintegrating tablet 4 mg PO Q8H PRN nausea and vomiting #14 tabs 02/10/22 [Rx Last Taken Unknown] sulfamethoxazole 800 mg-trimethoprim 160 mg tablet (Bactrim DS) 1 tab PO BID #24 tabs 02/10/22 [Rx Last Taken Unknown] Allergy/AdvReac Type Severity Reaction Status Date / Time No Known Allergies Allergy Verified 02/10/22 17:44 Social History Smoking Status: Never smoker ROS [facility] ED Constitutional Constitutional ED: Reports fever(s) Eyes Eyes: Denies change in vision or diplopia ENT ENT ED: Denies rhinorrhea or sore throat Cardiovascular Cardiovascular: Denies chest pain or palpitations Respiratory/Chest Respiratory/Chest: Denies cough or dyspnea Gastrointestinal Gastrointestinal: Reports abdominal pain and nausea Genitourinary Genitourinary ED: Denies dysuria or hematuria Musculoskeletal Musculoskeletal: Reports back pain Integumentary Denies abscess or Abrasions Neurologic Neurologic: Denies headache(s) or paresthesias Psychiatric Psychiatric: Denies anxiety or depression EXAM Physical Exam Const Vital Signs: 02/10/22 17:44 02/10/22 17:46 02/10/22 20:39 Temperature 99.6 F H 99.6 F H Temperature Source Temporal Temporal Pulse Rate 130 H 130 H Respiratory Rate 20 H 20 H Blood Pressure 115/84 H 115/84 H Blood Pressure Mean 94 94 Pulse Ox 97 97 99 Oxygen Delivery Method Room Air Room Air Room Air 02/10/22 21:23 Temperature Temperature Source Pulse Rate 98 Respiratory Rate Blood Pressure 106/71 Blood Pressure Mean 82 Pulse Ox 98 Oxygen Delivery Method Room Air Positive well nourished General Appearance ED: NAD; Negative for pallor HEENT Reports moist mucous membranes Eyes PERRL and EOMs intact bilaterally Chest Wall inspection of chest normal Resp normal respiratory effort and clear to auscultation bilaterally Auscultation: Negative for rales, rhonchi or wheezes Cardio regular rhythm Rate: tachycardic GI normal to inspection, nondistended, normoactive bowel sounds Back/Spine General Back: CVA tenderness right Neuro oriented x3 and CN's II-XII intact bilaterally Sensorium / Orientation: alert Psych mental status grossly normal Skin no rashes or lesions noted General Skin Exam: Negative for jaundice or pallor MDM MDM MDM Narrative Medical decision making narrative: Patient tachycardic on arrival but does not have a fever. She does not have any pain currently. She does not want be treated for pain or for nausea. She does have some right flank pain and right CVA tenderness. She shows a leukocytosis of 16.2, hemoglobin hematocrit are normal. Renal function electrolytes within normal limits. Total bilirubin slightly elevated 1.2. This is nonspecific. She not having any right upper quadrant pain. Lipase is normal. Repeat is received urinalysis shows 500 leukocyte esterase 25-50 white blood cells with 2+ bacteria. Positive nitrites. Patient was given a dose of Rocephin. Urine culture was sent. He was given a liter of IV fluids. Initial heart rate was 130. On repeat evaluation heart rate is 98. Blood pressure 106/71 which is normal for her. She is 90% on room air. She has not required anything for pain or nausea when she is been here. I initially had a CT of the abdomen pelvis and wanted to rule out kidney stone without contrast and there was only identifiable stone. The appendix was not well visualized. I did repeat the CT with IV contrast and there does appear to be some evidence of pyelonephritis. There is also a complex cyst on the right. She is not really tender in the right lower abdomen she more has CVA tenderness and this fits best with acute pyelonephritis. I do not believe she has appendicitis. The timing will be office to set this for several days. She does not have any focal right lower quadrant pain or even pelvic pain. This was discussed with her at length. She feels comfortable going home. She will be given Zofran and Bactrim for home. Return precautions were discussed. She will follow-up with her PCP if not improving she can return to the ER. Impression: 1. Pyelonephritis 2. Leukocytosis Lab Data Attestation: I reviewed the patient's lab results. Labs: Laboratory Results - last 24 hr 02/10/22 02/10/22 02/10/22 18:15 18:15 18:21 WBC 16.2 H RBC 4.43 Hgb 13.5 Hct 40.4 MCV 91.2 MCH 30.5 MCHC 33.4 RDW Std Deviation 41.4 RDW Coeff of Calderon 12.4 Plt Count 362 MPV 9.8 Immature Gran % (Auto) 0.500 Neut % (Auto) 86.6 H Lymph % (Auto) 6.8 L Boone % (Auto) 5.7 Eos % (Auto) 0.1 Baso % (Auto) 0.3 Absolute Neuts (auto) 14.1 H Absolute Lymphs (auto) 1.11 Nucleated RBC % 0 Sodium 136 Potassium 3.3 L Chloride 103 Carbon Dioxide 21.0 Anion Gap 12 BUN 9 Creatinine 0.87 Estim Creat Clear Calc 62.33 Est GFR (MDRD) Af Amer 102 Est GFR (MDRD) Non-Af 84 BUN/Creatinine Ratio 10.3 Glucose 89 Calcium 9.4 Total Bilirubin 1.20 H AST 11 L ALT 15 Alkaline Phosphatase 58 Total Protein 8.3 H Albumin 4.2 Globulin 4.1 Albumin/Globulin Ratio 1.0 Lipase 80 Urine Color Yellow Urine Clarity Sl. Cloudy Urine pH 6.0 Ur Specific [place] 1.015 Urine Protein 30 H Urine Glucose (UA) Normal Urine Ketones 150 A* Urine Occult Blood 10 H Urine Nitrite Positive H Urine Bilirubin Negative Urine Urobilinogen Normal Ur Leukocyte Esterase 500 H Urine RBC 0 SEEN Urine WBC 25-50 SEEN Ur Squamous Epith Cells 0-5 SEEN Urine Bacteria 2+ Urine Mucus 0 SEEN Urine Test Negative Radiography Diagnostic Testing: Clinical Impression(s) from Imaging Studies Abdomen/Pelvis CT 02/10/22 18:04 IMPRESSION: Increased stool. Appendix is not clearly identified and therefore appendicitis is difficult to exclude. Intravenous contrast and delayed oral contrast may be helpful if clinically warranted. No radiodense urolithiasis. Electronically Signed: Papito Platt MD at 19:30 EST Reading Location ID and State: [facility] / [place] , Service support , Abdomen/Pelvis CT 02/10/22 20:01 IMPRESSION: Possible pyelonephritis. Possible complex right adnexal cyst. Pelvic ultrasound may be helpful. Appendix is not well visualized. Again Delayed oral contrast may be helpful if clinically warranted. Electronically Signed: Papito Platt MD at 21:32 EST Reading Location ID and State: [address] [place] [address] , Service support , Discharge Plan Triage Chief Complaint: Flank Pain ED Provider: Edis Cummins Dx/Rx/DC Orders Clinical Impression: Acute pyelonephritis Instructions: ED Pyelonephritis, Female (Adult) Prescriptions: New sulfamethoxazole-trimethoprim [Bactrim DS] 800-160 mg tablet 1 tab PO BID Qty: 24 0RF ondansetron 4 mg tablet,disintegrating 4 mg PO Q8H PRN (Reason: nausea and vomiting) Qty: 14 0RF Primary Care Provider: Julien Hernandez Referrals: Daniel Brink DO [Med Staff - Customer Service Supervisor] - Disposition Disposition: Home, Self Care
[2022-02-10 18:23] LABS: Absolute Lymphocyte Count 1.11 X10^3/uL (0.83-4.51); Absolute Neutrophil Count 14.1 X10^3/uL (2.0-7.7); Basophil# 0.05 X10^3/uL; Basophil% 0.3 % (0-1); Eosinophil# 0.01 X10^3/uL; Eosinophils% 0.1 % (0-5); Hematocrit 40.4 % (37-47); Hemoglobin 13.5 g/dL (12.0-15.0); Lymphocyte # 1.11 X10^3/ul (0.83-4.51); Lymphocyte % 6.8 % (19-41); Mean Corp Hgb Conc 33.4 g/dL (32-36); Mean Corpuscular Hgb 30.5 pg (27.0-32.0); Mean Corpuscular Volume 91.2 fL (81-99); Mean Platelet Vol. 9.8 fl (6.2-12.0); Monocyte# 0.92 X10^3/uL; Monocyte% 5.7 % (0-10); NRBC Flagged by Analyzer 0 % (0-5); Neutrophil # 14.06 X10^3/uL (2.7-7.7); Neutrophil % 86.6 % (47-70); Platelet Count 362 K/mm3 (150-450); RBC Distribution Width CV 12.4 % (11.6-14.6); RBC Distribution Width SD 41.4 fl (35.1-43.9); Red Blood Count 4.43 M/mm3 (4.2-5.4); White Blood Count 16.2 K/mm3 (4.4-11.0)
[2022-02-10] MEDS: 0.9% Normal Saline 1,000 ML 1000 ML IV (18:26)
[2022-02-10 18:33] LABS: Mucous, Urine 0 SEEN /hpf (<or=2+); Red Blood Cells-Urine 0 SEEN /hpf (0-5)
[2022-02-10 18:39] LABS: Color, Urine Yellow (Yellow); Glucose, Dipstick Normal (Normal); Leukocyte Esterase-Dipstick 500 /ul (Negative); Nitrite-Dipstick Positive (Negative); Occult Blood-Urine 10 /ul (Negative); Protein-Dipstick 30 mg/dl (Negative); Specific Gravity, Urine 1.015 (1.002-1.030); Urine Bilirubin Dipstick Negative (Negative); Urine Clarity Sl. Cloudy (Clear); Urine Urobilinogen Normal (Normal)
[2022-02-10 18:39] LABS: AST(SGOT) 11 U/L (15-37); Alanine Aminotransfer ALT/SGPT 15 U/L (13-56); Albumin, Serum 4.2 g/dL (3.2-5.0); Alkaline Phosphatase 58 U/L (45-117); Anion Gap 12 (5-15); BUN 9 mg/dL (7-18); BUN/Creat Ratio 10.3 RATIO (10-20); Calcium,Total 9.4 mg/dL (8.5-10.1); Chloride 103 mmol/L (98-107); Creatinine, Serum 0.87 mg/dL (0.55-1.02); EST Glomerular Filtration Rate 84 mL/min (>60); Est Glom Filt Rate - Afr Amer 102 mL/min (>60); Estimated Creatinine Clearance 62.33 ml/min; Globulin 4.1 g/dL (2.2-4.2); Glucose 89 mg/dL (74-106); Lipase 80 U/L (73-393); Potassium 3.3 mmol/L (3.5-5.1); Protein, Total 8.3 g/dL (6.4-8.2); Sodium Level 136 mmol/L (136-145)
[2022-02-10 18:41] LABS: Ketone-Dipstick 150 mg/dl (Negative)
[2022-02-10 18:42] LABS: Internal QC Validated? YES +Cl - CLEAR BKGD; Pregnancy, Urine Negative Negative
[2022-02-10 18:47] LABS: Squamous Epithelial Cells - UA 0-5 SEEN /hpf (5-10)
[2022-02-10 18:48] LABS: Bacteria 2+ /hpf (None Seen); White Blood Cells 25-50 SEEN /hpf (0-5)
--- NOTE | 2022-02-10 20:01 | CT_ITS ---
STUDY: CT ABDOMEN AND PELVIS WITH CONTRAST REASON FOR EXAM: Female, 26 years old. rlq abdominal pain RADIATION DOSAGE (If Supplied By Facility): CTDIvol = ( 8.80 ) mGy, DLP = ( 200.70 ) mGycm TECHNIQUE: Transaxial images were obtained from the dome of the diaphragm to the symphysis pubis without oral contrast. IV 75mL [id number]-[id number] was administered. Sagittal and coronal images were reconstructed. Individualized dose optimization techniques were used for this CT. COMPARISON: CT abdomen and pelvis from 6:51 PM today. FINDINGS: The visualized lung bases are unremarkable. The visualized portions of the heart are within normal limits. Normal liver. Normal gallbladder and extrahepatic biliary system. Normal spleen. Normal pancreas. Normal bilateral adrenal glands. Multiple areas of hypoperfusion right kidney suggestive of lobar nephronia. Normal left kidney. Normal visualized stomach. Air-fluid levels throughout the small bowel. Increased stool throughout the colon. Appendix is not well visualized. Normal abdominal aorta. Normal inferior vena cava. Normal retroperitoneum. Normal urinary bladder. Uterus normal. There appears to be a complex right adnexal cystic lesion measuring up to 3.7 cm on the right. There is moderate free fluid in the pelvis which appears increased. Normal abdominal wall. Normal osseous structures. CT/Abdomen/Pelvis W IV Cont ONLY IMPRESSION: Possible pyelonephritis. Possible complex right adnexal cyst. Pelvic ultrasound may be helpful. Appendix is not well visualized. Again Delayed oral contrast may be helpful if clinically warranted. Electronically Signed: Papito Platt MD at 21:32 EST ,
[2022-02-10 20:39] VITALS: O2SAT 99
[2022-02-10 21:23] VITALS: BP 106/71; PULSE 98; O2SAT 98
== END 2022-02-10 21:53 | disposition home or self-care (01) ==
PROVIDERS: Emergency Provider Student in an Organized Health Care Education/Training Program; PCP Preventive Medicine Occupational Medicine; Visit Provider Student in an Organized Health Care Education/Training Program
DX: N10 Acute pyelonephritis (principal); D72.829 Elevated white blood cell count, unspecified
CPT/HCPCS: 74176; 74177; 80053; 81001; 81025; 83690; 85025; 87077; 87086; 87088; 87186; 96360; 99282; J7030; Q9967; A4216